=== PATIENT | female | born 1990 | race Caucasian/White ===

== ENCOUNTER 2019-09-26 09:59 | Outpatient (REF) | payer MEDICAID, SELFPAY | END 2019-09-26 10:00 | disposition home or self-care (01) | LOC: LAB 09:59 | PROVIDERS: Family Provider Family Medicine; PCP Family Medicine; Visit Provider Family Medicine | DX: R00.0 Tachycardia, unspecified (principal) | CPT/HCPCS: 36415; 82384; 83835 ==

== ENCOUNTER 2019-10-07 12:23 | Outpatient (CLI) | payer MEDICAID, SELFPAY ==
--- NOTE | 2019-10-07 12:45 | USCV_ITS ---
Dora Ruffin Age: 29 Gender: F : 1990 Exam Date: 10/07/2019 12:58 Ordering Phys: Moncho Larsen MD Technologist: Rissa Chin Exam Location: [place] Indication: Chest pain. Palpitations. BP: / HR: 92 Rhythm: Sinus Technical Quality: Adequate MEASUREMENTS (Male / Female) Normal Values 2D ECHO LV Diastolic Diameter PLAX 4.4 cm 4.2 - 5.9 / 3.9 - 5.3 cm LV Systolic Diameter PLAX 2.7 cm IVS Diastolic Thickness 1.1 cm 0.6 - 1.0 / 0.6 - 0.9 cm IVS Systolic Thickness 1.3 cm LVPW Diastolic Thickness 0.8 cm 0.6 - 1.0 / 0.6 - 0.9 cm LVPW Systolic Thickness 1.5 cm LVOT Diameter 2.0 cm LV Ejection Fraction 2D Teich 68.4 % LV Ejection Fraction MOD 2C 76.9 % LV Ejection Fraction 2C AL 76.9 % LA Diameter 2.9 cm LA Width 3.0 cm LA Height 4.2 cm RA Width 2.8 cm RA Height 3.9 cm Aorta at Sinotubular Diameter 2.3 cm M-MODE LV Diastolic Diameter MM 4.7 cm 4.2 - 5.9 / 3.9 - 5.3 cm LV Systolic Diameter MM 2.8 cm LV Ejection Fraction MM Teich 70.9 % IVS Diastolic Thickness MM 0.8 cm 0.6 - 1.0 / 0.6 - 0.9 cm IVS Systolic Thickness MM 1.3 cm LVPW Diastolic Thickness MM 0.8 cm 0.6 - 1.0 / 0.6 - 0.9 cm LVPW Systolic Thickness MM 1.6 cm Aortic Annulus Diameter 2.6 cm LA Ao Ratio MM 1.1 MV E Point Septal Separation 0.4 cm DOPPLER AV Peak Velocity 137.0 cm/s LVOT Peak Velocity 97.0 cm/s AV Area Cont Eq vti 2.7 cm squared AV Area Cont Eq pk 2.2 cm squared MV Area PHT 3.7 cm squared Mitral E to A Ratio 1.3 MV E' Velocity 13.0 cm/s Mitral E to MV E' Ratio 7.7 Mitral E to LV E' Lateral Ratio 7.1 Mitral E to LV E' Septal Ratio 8.5 TV Peak E Velocity 62.0 cm/s Right Atrial Pressure 3.0 mmHg PV Peak Velocity 94.0 cm/s RV Acceleration Time 0.1 s RV Ejection Time 0.3 s RV AcT/ET 0.5 FINDINGS Left Ventricle Normal left ventricular size and systolic function, EF 70 %. No regional wall motion abnormalities. Right Ventricle The right ventricle is normal in size and function. Right Atrium The right atrium is normal in size. Left Atrium The left atrium is normal in size. Mitral Valve Structurally normal mitral valve without significant stenosis or prolapse. There is no mitral regurgitation. Aortic Valve Structurally normal aortic valve without significant sclerosis or stenosis. There is no aortic regurgitation. Tricuspid Valve Structurally normal tricuspid valve without significant stenosis or regurgitation. Pulmonary artery systolic pressure is normal. Pulmonic Valve Structurally normal pulmonic valve without significant stenosis. There is no pulmonic regurgitation. Pericardium Normal pericardium without effusion. Aorta Normal ascending aorta dimension. CONCLUSIONS Normal left ventricular size and systolic function, EF 70 %. No regional wall motion abnormalities. Normal cardiac chamber sizes. No significant valvular lesions. No intracardiac masses No intracardiac shunts by color flow Doppler examination No similar previous studies are available for comparison Dr Olivia Dykes MD FACC (Electronically Signed) Final Date: 07 October 2019 18:22 S
== END 2019-10-07 12:24 | disposition home or self-care (01) ==
LOC: US 12:25
PROVIDERS: Family Provider Family Medicine; Visit Provider Family Medicine
DX: R07.9 Chest pain, unspecified (principal); R00.0 Tachycardia, unspecified
CPT/HCPCS: 93306

== ENCOUNTER → 2019-10-11 12:54 | Outpatient (BNVA) | payer MEDICAID, SELFPAY | PROVIDERS: Family Provider Family Medicine; Visit Provider Nurse Practitioner Family | DX: R31.29 Other microscopic hematuria (principal); N39.0 Urinary tract infection, site not specified | CPT/HCPCS: 81001 ==

== ENCOUNTER → 2019-10-27 07:46 | Outpatient (BNVA) | payer MEDICAID, SELFPAY | PROVIDERS: Family Provider Family Medicine; PCP Family Medicine; Visit Provider Specialist | DX: G43.711 Chronic migraine without aura, intractable, with status migrainosus (principal) | CPT/HCPCS: 64615; J0585 ==

== ENCOUNTER → 2020-01-05 16:44 | Outpatient (BNVA) | payer MEDICAID, SELFPAY | PROVIDERS: Family Provider Family Medicine; PCP Family Medicine; Visit Provider Nurse Practitioner | DX: K21.9 Gastro-esophageal reflux disease without esophagitis (principal); E55.9 Vitamin D deficiency, unspecified | CPT/HCPCS: 80053; 82306; 82607; 85025 ==

== ENCOUNTER → 2020-01-19 07:43 | Outpatient (BNVA) | payer MEDICAID, SELFPAY | PROVIDERS: Family Provider Family Medicine; PCP Family Medicine; Visit Provider Specialist | DX: G43.711 Chronic migraine without aura, intractable, with status migrainosus (principal) | CPT/HCPCS: 64615; J0585 ==

== ENCOUNTER → 2020-02-24 12:18 | Outpatient (BNVA) | payer MEDICAID, SELFPAY | PROVIDERS: Family Provider Family Medicine; PCP Family Medicine; Visit Provider Nurse Practitioner | DX: G47.00 Insomnia, unspecified (principal); F98.8 Other specified behavioral and emotional disorders with onset usually occurring in childhood and adolescence; G25.81 Restless legs syndrome; E66.9 Obesity, unspecified | CPT/HCPCS: 80061; 82310; 83970 ==

== ENCOUNTER → 2020-03-09 15:28 | Outpatient (BNVA) | payer MEDICAID, SELFPAY | PROVIDERS: Family Provider Family Medicine; PCP Family Medicine; Visit Provider Nurse Practitioner Family | DX: N39.0 Urinary tract infection, site not specified (principal) | CPT/HCPCS: 80053; 87077; 87086; 87186 ==

== ENCOUNTER → 2020-03-15 14:24 | Outpatient (BNVA) | payer MEDICAID, SELFPAY | PROVIDERS: Family Provider Family Medicine; PCP Family Medicine; Visit Provider Specialist | DX: M25.569 Pain in unspecified knee (principal) | CPT/HCPCS: 73560; 73565 ==

== ENCOUNTER 2020-04-06 08:07 | Outpatient (CLI) | payer MEDICAID, SELFPAY ==
[2020-04-06 08:42] LABS: Basophils % 0.1 %; Hematocrit 41.8 % (37.0-47.0); Hemoglobin 13.9 g/dL (11.5-15.3); Lymphocytes % 29.7 %; Mean Corpuscular HGB Conc 33.3 g/dL (30.0-36.0); Mean Corpuscular Hemoglobin 30.3 pg (28.0-34.0); Mean Corpuscular Volume 91.1 fL (81-99); Mean Platelet Volume 11.1 fL (7.4-10.4); Monocytes # 0.5 10^3/uL (0.2-0.9); Monocytes % 7.7 %; Neutrophils # 4.21 10^3/uL (1.8-7.7); Neutrophils % 62.4 %; Nucleated Red Blood Cells % 0 %; Platelet Count 261 10^3/cmm (130-400); Red Blood Count 4.59 10^6/uL (4.1-5.3); Red Cell Distribution Width 11.9 % (12.1-15.1); White Blood Count 6.8 10^3/uL (4.0-10.0)
[2020-04-06 09:09] LABS: Alanine Aminotransferase 16 U/L (0-33); Albumin Level 4.5 g/dL (3.5-5.2); Alkaline Phosphatase 82 IU/L (35-105); Anion Gap 12.6 (5-19); Aspartate Amino Transferase 11 U/L (0-32); Blood Urea Nitrogen 9 mg/dL (6-20); Calcium 8.7 mg/dL (8.5-10.5); Carbon Dioxide 28 mmol/L (22-29); Chloride 102 mmol/L (98-107); Globulin 3.2 g/dL (1.3-4.6); Glomerular Filtration Rate 117.4 mL/min (90-130); Glucose 76 mg/dL (65-115); Osmolality Calculated 283 mOsm/kg (285-295); Potassium 3.6 mmol/L (3.5-5.1); Sodium 139 mmol/L (136-145); Total Bilirubin 0.4 mg/dL (0.15-1.2); Total Protein 7.7 g/dL (6.6-8.7)
[2020-04-06 09:52] LABS: HIV 1 & 2 Antibody Non-Reactive (Non-Reactiv); HIV 1 & 2 Antigen Non-Reactive (Non-Reactiv)
[2020-04-06 09:54] LABS: Hepatitis A Antibody IgM Non-Reactive (Nonreactive); Hepatitis B Core AB, Total Non-Reactive (Nonreactive); Hepatitis B Surface AB 38.2 (0-8.5); Hepatitis B Surface Antigen Non-Reactive (Nonreactive); Hepatitis C Virus Antibody Non-Reactive (Nonreactive)
[2020-04-06 10:12] LABS: Erythrocyte Sedimentation Rate 10 mm/hr (0-15)
[2020-04-09 11:47] LABS: Lyme AB Screen <0.90 index
[2020-04-09 13:12] LABS: Anti-Nuclear Antibody Screen NEGATIVE (NEGATIVE)
[2020-04-10 17:02] LABS: E. Chaffeensis AB IGG <1:64; E. Chaffeensis AB IGM <1:20
[2020-04-11 16:02] LABS: RMSF IGG NOT DETECTED; RMSF IGM NOT DETECTED
== END 2020-04-06 08:08 | disposition home or self-care (01) ==
LOC: LAB 08:10
PROVIDERS: PCP Family Medicine; Visit Provider Student in an Organized Health Care Education/Training Program
DX: R50.9 Fever, unspecified (principal)
CPT/HCPCS: 36415; 80053; 85025; 85651; 86038; 86618; 86622; 86638; 86666; 86705; 86706; 86709; 86757; 86803; 87040; 87340; 87806

== ENCOUNTER → 2020-04-12 07:45 | Outpatient (BNVA) | payer MEDICAID, SELFPAY | PROVIDERS: PCP Family Medicine; Visit Provider Specialist | DX: G43.711 Chronic migraine without aura, intractable, with status migrainosus (principal); F98.8 Other specified behavioral and emotional disorders with onset usually occurring in childhood and adolescence; F32.9 Major depressive disorder, single episode, unspecified | CPT/HCPCS: 64615; 99213 ==

== ENCOUNTER 2020-05-29 16:36 | Outpatient (CLI) | payer MEDICAID, SELFPAY | END 2020-05-29 16:37 | disposition home or self-care (01) | LOC: LAB 03-22 14:04 | PROVIDERS: PCP Nurse Practitioner; Visit Provider Nurse Practitioner Women's Health | DX: N89.8 Other specified noninflammatory disorders of vagina (principal); Z12.4 Encounter for screening for malignant neoplasm of cervix | CPT/HCPCS: 87512; 87799 ==

== ENCOUNTER 2020-06-15 14:02 | Outpatient (CLI) | payer MEDICAID, SELFPAY ==
--- NOTE | 2020-06-15 14:09 | CT_ITS ---
WS: [id number] CT scan of the head, 06/15/2020 Clinical Data: fuo Comparison: MRI of the head, 03/11/2017. DLP: 992.[address] scans at [facility] use at least one of these dose optimization techniques: automat ed exposure control; mA and/or kV adjustment per patient size (includes targeted exams where dose is matched to clinical indication); or iterative reconstruction. Findings: The ventricular system is normal without shift. No recent infarct or hemorrhage is seen. There are no abnormal intracerebral masses. The cerebellum and brainstem are not remarkable. Bony windows of the skull and skull base show no fractures or erosions. The mastoid air cells, director international al auditory canals, sella turcica, intraorbital contents, and paranasal sinuses are unremarkable. CT/CT head wo con* [id number] Impression: Negative CT scan of the head
== END 2020-06-15 14:03 | disposition home or self-care (01) ==
LOC: RADWPI 14:05
PROVIDERS: PCP Nurse Practitioner; Visit Provider Student in an Organized Health Care Education/Training Program
DX: R50.9 Fever, unspecified (principal)
CPT/HCPCS: 70450; 88175

== ENCOUNTER 2020-07-09 13:39 | Outpatient (CLI) | payer MEDICAID, SELFPAY ==
[2020-07-09 14:11] LABS: Basophils % 0.2 %; Eosinophils % 0.1 %; Hematocrit 40.9 % (37.0-47.0); Hemoglobin 13.9 g/dL (11.5-15.3); Lymphocytes # 2.7 10^3/uL (0.8-4.8); Lymphocytes % 29.4 %; Mean Corpuscular Hemoglobin 30.8 pg (28.0-34.0); Mean Corpuscular Volume 90.5 fL (81-99); Mean Platelet Volume 11.3 fL (7.4-10.4); Monocytes # 0.7 10^3/uL (0.2-0.9); Monocytes % 7.7 %; Neutrophils # 5.65 10^3/uL (1.8-7.7); Neutrophils % 62.4 %; Nucleated Red Blood Cells % 0 %; Platelet Count 281 10^3/cmm (130-400); Red Blood Count 4.52 10^6/uL (4.1-5.3); Red Cell Distribution Width 12.2 % (12.1-15.1); White Blood Count 9.1 10^3/uL (4.0-10.0)
[2020-07-09 14:27] LABS: Estmated Average Glucose 85; Hemoglobin A1C 4.6 % (4.0-6.0)
[2020-07-09 15:04] LABS: Alanine Aminotransferase 27 U/L (0-33); Albumin Level 4.4 g/dL (3.5-5.2); Alkaline Phosphatase 95 IU/L (35-105); Anion Gap 14.5 (5-19); Aspartate Amino Transferase 14 U/L (0-32); Blood Urea Nitrogen 9 mg/dL (6-20); Carbon Dioxide 24 mmol/L (22-29); Chloride 107 mmol/L (98-107); Chol HDL Ratio 2.85 mg/dL (0.0-4.40); Cholesterol 117 mg/dL (0-200); Globulin 2.7 g/dL (1.3-4.6); Glomerular Filtration Rate 73.5 mL/min (90-130); Glucose 83 mg/dL (65-115); HDL Cholesterol 41 mg/dL (60-100); Iron 68 ug/dL (37-145); LDL Cholesterol Calculated 41 mg/dL (50-129); Osmolality Calculated 292 mOsm/kg (285-295); Potassium 3.5 mmol/L (3.5-5.1); Sodium 142 mmol/L (136-145); Thyroid Stimulating Hormone 0.72 uIU/mL (0.27-4.20); Total Bilirubin 0.3 mg/dL (0.15-1.2); Total Protein 7.1 g/dL (6.6-8.7); Triglycerides 173 mg/dL (0-150); Vitamin B12 383 pg/mL (232-1245)
[2020-07-10 10:25] LABS: Parathyroid Hormone 27.9 pg/mL (15-65)
== END 2020-07-09 13:40 | disposition home or self-care (01) ==
PROVIDERS: PCP Nurse Practitioner; Visit Provider Surgery
DX: E88.81 Metabolic syndrome and other insulin resistance (principal)
CPT/HCPCS: 80053; 80061; 82310; 82607; 82746; 83036; 83540; 83735; 83970; 84100; 84443; 85025

== ENCOUNTER → 2020-07-12 07:56 | Outpatient (BNVA) | payer MEDICAID, SELFPAY | PROVIDERS: PCP Nurse Practitioner; Visit Provider Specialist | DX: G43.711 Chronic migraine without aura, intractable, with status migrainosus (principal); G47.00 Insomnia, unspecified; F41.8 Other specified anxiety disorders | CPT/HCPCS: 64615; 99213; J0585 ==

== ENCOUNTER 2020-07-20 08:06 | Outpatient (CLI) | payer MEDICAID, SELFPAY ==
--- NOTE | 2020-07-20 08:12 | CT_ITS ---
WS: [id number] CT CHEST, ABDOMEN AND PELVIS WITH CONTRAST HISTORY: Fever of unknown origin. Evaluate for possible mass or abscess. TECHNIQUE: Contiguous 5 mm axial imaging performed through the chest, abdomen and pelvis with IV cont rast, oral contrast has been provided. Patient vomited the oral contrast therefore there is very limi isaac oral contrast present. Coronal and sagittal reformats chest. Coronal and sagittal reformats throu gh the abdomen and pelvis. All CT scans at [facility] use at least one of these dose opti mization techniques: automated exposure control; mA and/or kV adjustment per patient size (includes t argeted exams where dose is matched to clinical indication); or iterative reconstruction. CONTRAST: Omnipaque 300; 95 mL IV. DLP: 2096.83 mGy.cm COMPARISON: 12/02/[address]: Lungs are clear. No pneumonia or nodules. No mediastinal or hilar adenopathy. Heart size is normal. No significant hernia. Negative chest wall. Abdomen CT: Mild enlargement of the liver with hepatic steatosis. Spleen is normal size. Normal pancr eas and adrenal glands. Normal kidneys and aorta. Surgical changes at the stomach from prior bypass. No ascites or adenopathy. The appendix is normal. There is mild diffuse fecal retention. No mucosal thickening. No evidence for diverticulitis. Pelvic CT: Uterus is midline and anteverted. There is an IUD which appears appropriate position by CT . Bilateral ovarian follicles. No solid mass. No free fluid or adenopathy. No bone destruction. CT/CT chest abd pel w con* IMPRESSION: 1. Negative CT chest, abdomen and pelvis for inflammatory process or infection . 2. Mild hepatic steatosis. 3. Normal appendix. 4. No renal obstruction. 5. No pneumonia.
[2020-07-20] MEDS: iohexol 300 mg/mL 50 mL Btl PO (08:29)
[2020-07-20] MEDS: iohexol 300 mg/mL 100 mL Btl IV (10:05)
[2020-07-21] MEDS: iohexol 300 mg/mL 100 mL Btl IV (12:21)
== END 2020-07-20 08:07 | disposition home or self-care (01) ==
LOC: RAD 08:07
PROVIDERS: PCP Nurse Practitioner; Visit Provider Student in an Organized Health Care Education/Training Program
DX: R50.9 Fever, unspecified (principal); K76.0 Fatty (change of) liver, not elsewhere classified
CPT/HCPCS: 71260; 74177

== ENCOUNTER 2020-07-23 20:00 | Outpatient (CLI) | payer MEDICAID, SELFPAY | END 2020-07-23 20:01 | disposition home or self-care (01) | LOC: SLEEP 07-24 10:00 | PROVIDERS: PCP Nurse Practitioner; Visit Provider Nurse Practitioner | DX: G47.10 Hypersomnia, unspecified (principal) | CPT/HCPCS: 95810 ==

== ENCOUNTER → 2020-07-24 08:21 | Outpatient (BNVA) | payer MEDICAID, SELFPAY | PROVIDERS: PCP Nurse Practitioner; Visit Provider Orthopaedic Surgery | DX: R52 Pain, unspecified (principal); M47.816 Spondylosis without myelopathy or radiculopathy, lumbar region | CPT/HCPCS: 72114; 73502 ==

== ENCOUNTER 2020-07-27 08:02 | Outpatient (CLI) | payer MEDICAID, SELFPAY ==
--- NOTE | 2020-07-27 08:00 | MM_ITS ---
WS: [id number] Bilateral screening digital mammogram, 07/27/2020 Clinical Data: screening for breast cancer Comparison: None. Findings: The breast parenchymal pattern shows fibroglandular tissue No spiculated masses or clustered calcific ations are seen. There are no secondary signs of carcinoma. MM/[place] [id number] Impression: 1. Negative bilateral mammogram unchanged. 2. Recommend annual screening mammograms. BIRADS: 1-Negative FOLLOW UP: 1 Year Follow-up The CAD raspberry checker was used.
== END 2020-07-27 08:03 | disposition home or self-care (01) ==
PROVIDERS: PCP Nurse Practitioner; Visit Provider Nurse Practitioner Women's Health
DX: Z12.31 Encounter for screening mammogram for malignant neoplasm of breast (principal)
CPT/HCPCS: 77067

== ENCOUNTER → 2020-10-04 07:56 | Outpatient (BNVA) | payer MEDICAID, SELFPAY | PROVIDERS: PCP Nurse Practitioner; Visit Provider Specialist | DX: R50.9 Fever, unspecified (principal); N39.0 Urinary tract infection, site not specified; G47.00 Insomnia, unspecified; M25.569 Pain in unspecified knee; Z11.59 Encounter for screening for other viral diseases; G43.711 Chronic migraine without aura, intractable, with status migrainosus; F41.8 Other specified anxiety disorders | CPT/HCPCS: 36415; 64615; 80053; 82533; 82550; 82728; 83540; 85025; 85651; 86140; 86160; 86162; 86235; 86255; 86376; 86704; 86803; 87340; 99204; J0585 ==

== ENCOUNTER → 2020-10-09 12:58 | Outpatient (BNVA) | payer MEDICAID, SELFPAY | PROVIDERS: PCP Nurse Practitioner; Visit Provider Nurse Practitioner Family | DX: N39.0 Urinary tract infection, site not specified (principal) | CPT/HCPCS: 81003 ==

== ENCOUNTER 2020-10-26 09:14 | Outpatient (CLI) | payer MEDICAID, SELFPAY ==
--- NOTE | 2020-10-26 09:24 | XR_ITS ---
WS: [id number] XR hand LT 2V 61543 REASON FOR EXAM: M25.569 - Pain in unspecified knee FINDINGS: The joint spaces of the left hand are intact. No bony erosions or other focal bony abnormality identified. No soft tissue calcification or other soft tissue abnormality identified. XR/XR hand LT 2V 40824 IMPRESSION: No significant abnormality.
--- NOTE | 2020-10-26 09:24 | XR_ITS ---
WS: [id number] XR knee RT 1-2V 10291 REASON FOR EXAM: M25.569 - Pain in unspecified knee FINDINGS: On the AP standing view the course on the plane of the right knee joint is 6 mm below the horizontal plane of the left knee joint. The medial, lateral, and patellofemoral joint spaces are intact. No focal bony abnormality. No soft tissue abnormality. XR/XR knee RT 1-2V 37649 IMPRESSION: Weightbearing alignment of the knee joints as above. No focal abnormality of the right knee joint.
--- NOTE | 2020-10-26 09:24 | XR_ITS ---
WS: [id number] XR sacroiliac jts m 3V 19469 REASON FOR EXAM: L40.9 - Psoriasis, unspecified FINDINGS: Sacroiliac joint margins are smooth without erosion. No widening or narrowing. Normal adjacent bone. XR/XR sacroiliac jts m 3V 31606 IMPRESSION: No findings of sacroiliitis.
--- NOTE | 2020-10-26 09:24 | XR_ITS ---
WS: [id number] XR knee LT 1-2V 79548 REASON FOR EXAM: M25.569 - Pain in unspecified knee FINDINGS: On the AP standing view the horizontal plane of the left knee is 6 mm above the horizontal plane of t he right knee. Knee joint. The medial, lateral, and patellofemoral joint spaces are intact. No focal bony abnormality. No soft tissue abnormality. XR/XR knee LT 1-2V 51814 IMPRESSION: Knee joint alignment on standing as above. No significant focal abnormality of the left knee.
--- NOTE | 2020-10-26 09:24 | XR_ITS ---
WS: [id number] XR hand RT 2V 83131 REASON FOR EXAM: M25.569 - Pain in unspecified knee FINDINGS: The joint spaces of the right hand are intact. No erosions or other focal bony abnormality. No soft tissue calcification or other soft tissue abnormality. XR/XR hand RT 2V 96454 IMPRESSION: No significant abnormality.
== END 2020-10-26 09:15 | disposition home or self-care (01) ==
PROVIDERS: PCP Nurse Practitioner; Visit Provider Internal Medicine
DX: M25.569 Pain in unspecified knee (principal); L40.9 Psoriasis, unspecified
CPT/HCPCS: 72202; 73120; 73560

== ENCOUNTER 2020-11-22 15:12 | Outpatient (CLI) | payer MEDICAID, SELFPAY ==
--- NOTE | 2020-11-22 15:41 | XR_ITS ---
WS: [id number] Chest 2 views, 11/22/2020 Clinical Data: R05 - Cough Comparison: PA and lateral chest, 10/07/2008. Findings: No nodules, masses or effusions are seen. The heart is normal. The pulmonary vascularity is not increased. No pneumonia or pneumothorax is seen. XR/XR chest 2V* [id number] Impression: Negative chest.
== END 2020-11-22 15:13 | disposition home or self-care (01) ==
PROVIDERS: PCP Nurse Practitioner; Visit Provider Nurse Practitioner
DX: R05 Cough (principal)
CPT/HCPCS: 71046

== ENCOUNTER 2020-11-22 15:26 | Outpatient (CLI) | payer MEDICAID, SELFPAY ==
[2020-11-22 16:17] LABS: Basophils % 0.4 %; Eosinophils % 0.5 %; Hematocrit 40.6 % (37.0-47.0); Hemoglobin 13.4 g/dL (11.5-15.3); Lymphocytes # 1.6 10^3/uL (0.8-4.8); Lymphocytes % 20.3 %; Mean Corpuscular Hemoglobin 29.8 pg (28.0-34.0); Mean Corpuscular Volume 90.2 fL (81-99); Mean Platelet Volume 11.4 fL (7.4-10.4); Monocytes # 0.7 10^3/uL (0.2-0.9); Neutrophils # 5.57 10^3/uL (1.8-7.7); Neutrophils % 69.5 %; Nucleated Red Blood Cells % 0 %; Platelet Count 263 10^3/cmm (130-400); Red Cell Distribution Width 12.2 % (12.1-15.1)
[2020-11-23 11:52] LABS: Quest SARS-CoV-2 RNA NOT DETECTED (NOT DETECTED)
== END 2020-11-22 15:27 | disposition home or self-care (01) ==
PROVIDERS: PCP Nurse Practitioner; Visit Provider Nurse Practitioner
DX: R05 Cough (principal)
CPT/HCPCS: 36415; 85025; 87635

== ENCOUNTER 2020-12-10 07:38 | Outpatient (CLI) | payer MEDICAID, SELFPAY ==
--- NOTE | 2020-12-10 08:00 | MR_ITS ---
WS: [id number] MRI LUMBAR SPINE NONCONTRAST TECHNIQUE: Sagittal T1, T2 and STIR imaging. Axial T1 and T2 imaging. CLINICAL INFORMATION: M54.5 - Low back pain COMPARISON: None. FINDINGS: Normal lumbar alignment. No acute compression. Mild annular bulge L4-5. No high-grade central canal s tenosis. L1-L2: Normal. L2-L3: Normal. L3-L4: No significant disc bulging. Spinal canal and foramen are patent. Mild facet arthropathy. L4-L5: Mild annular bulging with slight effacement of ventral thecal sac. Mild right and no significa nt left foraminal narrowing. Mild facet arthropathy. L5-S1: No significant disc bulging. Spinal canal and foramen are patent. Small central disc protrusion T7-T8 and T9-10 with mild central canal stenosis and slight contact of the thoracic cord. This can be followed up with thoracic spine MRI. Visualized pelvic bony structures: Normal. Paravertebral soft tissues: Normal. MR/MR lumbar spine wo con* [id number] IMPRESSION: 1. Normal lumbar alignment. No acute compression. No high-grade central canal stenosis. 2. Mild annular bulging L4-5 with slight effacement of ventral thecal sac and slight narrowing of the left greater than right subarticular recess. Slight enc roachment traversing L5 nerve roots. 3. Mild right L4-5 foraminal narrowing. 4. Small disc protrusions mid thoracic spine seen on the mortgage processor imaging worse a t T7-T8 and T9-T10 with mild central canal stenosis.
== END 2020-12-10 07:39 | disposition home or self-care (01) ==
LOC: RADSHAW 07:42
PROVIDERS: PCP Nurse Practitioner; Visit Provider Orthopaedic Surgery
DX: M51.26 Other intervertebral disc displacement, lumbar region (principal); M48.04 Spinal stenosis, thoracic region
CPT/HCPCS: 72148

== ENCOUNTER 2020-12-24 07:48 | Outpatient (CLI) | payer MEDICAID, SELFPAY ==
[2020-12-24 08:59] LABS: Complement C3 128 mg/dL (90-180)
[2020-12-25 12:12] LABS: Angiotensin Converting Enzyme 22 U/L (9-67)
[2020-12-28 10:59] LABS: ANCA Interp Negative (Negative)
== END 2020-12-24 07:49 | disposition home or self-care (01) ==
PROVIDERS: PCP Nurse Practitioner; Visit Provider Internal Medicine
DX: R50.9 Fever, unspecified (principal); R76.8 Other specified abnormal immunological findings in serum; Z98.84 Bariatric surgery status
CPT/HCPCS: 36415; 82164; 83516; 86160

== ENCOUNTER → 2020-12-27 07:59 | Outpatient (BNVA) | payer MEDICAID, SELFPAY | PROVIDERS: PCP Nurse Practitioner; Visit Provider Specialist | DX: G43.709 Chronic migraine without aura, not intractable, without status migrainosus (principal) | CPT/HCPCS: 64615; J0585 ==

== ENCOUNTER 2021-01-28 10:20 | Outpatient (CLI) | payer MEDICAID, SELFPAY ==
--- NOTE | 2021-01-28 10:30 | FL_ITS ---
WS: [id number] UPPER GI WITH AIR TECHNICAL: FLUOROSCOPY TIME: 3.6 minutes CLINICAL INFORMATION: Z98.84 - Bariatric surgery status COMPARISON: Upper GI June 16, 2019, , and . FINDINGS: Prior postoperative changes gastric sleeve procedure. Again seen is the previously describe d stricture in the mid body of the gastric sleeve which is unchanged. Evidence of mild gastritis with thickening of the gastric rugae. Active reflux to the level of the upper thoracic esophagus seen on the supine imaging. Only small eso phageal hiatal hernia. Swallowing: Normal. Esophagus: Mild esophageal dysmotility with slightly delayed emptying on the upright view. Evidence o f reflux esophagitis. Gastroesophageal reflux: Active reflux to the mid and upper esophagus on the supine imaging. Stomach: Postoperative gastric sleeve. Unchanged stricture in the mid body of the stomach which is pe rsistent on all the imaging. Evidence of gastritis Duodenum: Normal duodenal C-loop. Other findings: None. FL/FL upper GI w air* [id number] IMPRESSION: 1. Postoperative gastric sleeve with unchanged moderate stricture in the mid b dex of the stomach. This is unchanged from the prior studies. 2. Active reflux visualized to the upper thoracic esophagus in the supine imag ing. 3. No significant hiatal hernia. 4. Normal duodenal C-loop. 5. Evidence of gastritis and reflux esophagitis.
== END 2021-01-28 10:21 | disposition home or self-care (01) ==
PROVIDERS: PCP Nurse Practitioner; Visit Provider Surgery
DX: Z98.84 Bariatric surgery status (principal); K21.9 Gastro-esophageal reflux disease without esophagitis
CPT/HCPCS: 74246

== ENCOUNTER → 2021-03-21 08:09 | Outpatient (BNVA) | payer MEDICAID, SELFPAY | PROVIDERS: PCP Nurse Practitioner; Visit Provider Specialist | DX: G43.711 Chronic migraine without aura, intractable, with status migrainosus (principal) | CPT/HCPCS: 64615; J0585 ==

== ENCOUNTER 2021-04-05 10:06 | Outpatient (CLI) | payer MEDICAID, SELFPAY ==
[2021-04-05 10:57] LABS: Basophils % 0.4 %; Eosinophils % 0.2 %; Hematocrit 39.4 % (37.0-47.0); Lymphocytes # 1.6 10^3/uL (0.8-4.8); Mean Corpuscular Hemoglobin 29.4 pg (28.0-34.0); Mean Corpuscular Volume 89.1 fl (81-99); Mean Platelet Volume 11.6 fL (7.4-10.4); Monocytes # 0.6 10^3/uL (0.2-0.9); Neutrophils # 8.36 10^3/uL (1.8-7.7); Neutrophils % 78.1 %; Nucleated Red Blood Cells % 0 %; Platelet Count 248 10^3/cmm (130-400); Red Blood Count 4.42 10^6/uL (4.1-5.3); Red Cell Distribution Width 12.4 % (12.1-15.1); White Blood Count 10.7 10^3/uL (4.0-10.0)
[2021-04-05 11:14] LABS: Calcium 8.6 mg/dL (8.5-10.5)
[2021-04-05 11:19] LABS: 25 Hydroxy Vitamin D 30 ng/mL (30-100); Alanine Aminotransferase 26 U/L (0-33); Albumin Level 4.1 g/dL (3.5-5.2); Alkaline Phosphatase 78 IU/L (35-105); Anion Gap 11.9 (5-19); Aspartate Amino Transferase 16 U/L (0-32); Blood Urea Nitrogen 10 mg/dL (6-20); Calcium 8.5 mg/dL (8.5-10.5); Carbon Dioxide 28 mmol/L (22-29); Chloride 103 mmol/L (98-107); Chol HDL Ratio 2.73 mg/dL (0.0-4.40); Cholesterol 109 mg/dL (0-200); Ferritin 24 ng/mL (15-150); Glomerular Filtration Rate 83.7 mL/min (90-130); Glucose 82 mg/dL (65-115); HDL Cholesterol 40 mg/dL (60-100); Iron 43 ug/dL (37-145); LDL Cholesterol Calculated 61 mg/dL (50-129); LDL HDL Ratio 1.53 RATIO (0.00-3.22); Osmolality Calculated 286 mOsm/kg (285-295); Percent Saturation 16.8 % (20-50); Potassium 3.9 mmol/L (3.5-5.1); Sodium 139 mmol/L (136-145); Thyroid Stimulating Hormone 0.75 uIU/mL (0.27-4.20); Total Bilirubin 0.5 mg/dL (0.15-1.2); Total Iron Binding Capacity 255 mcg/dl; Total Protein 7.1 g/dL (6.6-8.7); Triglycerides 40 mg/dL (0-150); Unsaturated Iron Binding 212 ug/dL (112-347); Vitamin B12 395 pg/mL (232-1245)
[2021-04-05 11:22] LABS: Parathyroid Hormone 97.2 pg/mL (15-65)
[2021-04-05 11:36] LABS: Estmated Average Glucose 88; Hemoglobin A1C 4.7 % (4.0-6.0)
[2021-04-05 13:16] LABS: H. Pylori IgG Antibody Negative (Negative)
== END 2021-04-05 10:07 | disposition home or self-care (01) ==
PROVIDERS: PCP Nurse Practitioner; Visit Provider Nurse Practitioner Adult Health
DX: K21.9 Gastro-esophageal reflux disease without esophagitis (principal)
CPT/HCPCS: 80053; 80061; 82306; 82310; 82607; 82728; 83036; 83540; 83550; 83970; 84443; 85025; 86677

== ENCOUNTER → 2021-04-12 14:05 | Outpatient (BNVA) | payer MEDICAID, SELFPAY | PROVIDERS: PCP Nurse Practitioner; Visit Provider Surgery | DX: Z20.822 Contact with and (suspected) exposure to COVID-19 (principal); K21.9 Gastro-esophageal reflux disease without esophagitis | CPT/HCPCS: 87635 ==

== ENCOUNTER 2021-04-17 09:01 | Day surgery (SDC) | payer MEDICAID, SELFPAY ==
[2021-04-12 13:19] VITALS: BMI 35.2
--- NOTE | 2021-04-17 09:16 | P.ANESASSM_ITS ---
Pre-Anesthetic Assessment Pre-Anesthetic Assessment: Height/Weight: Height 1.68 m Weight 98.883 kg Preop Diagnosis: GERD Proposed Procedure: Operation Date: 04/17/21 10:30 Proposed Procedures p EGD 13160 K21.9(Not Applicable) - Cuba Rosado MD Familial anesthetic complications: trouble waking up afterwards (sleepy) Last intake: > 8 hrs Social: Social History: No alcohol and No tobacco Exam: Pre-Anes Outpt Exam: alert, oriented x 3, clear to auscultation bilaterally and regular rate & rhythm Airway: MP: 2 Dentition: Full CV/HEM: Comments: tachycardia GI: GI: GERD Comments: gastric sleeve Metabolic: Comments: hyperpth Anesthetic Plan: ASA status: 3 Anesthesia: MAC Risk of > 500 ml blood loss (7ml/kg in children): No PFSH Anesthesia PFSH: Medical History Anxiety with depression Symptoms since a teenager and is managed on medication by her primary care provider. She does not have a therapist or a psychiatrist Migraine without aura Since her teenage years and is managed with medication and Botox by Dr. Dunn No pertinent past medical history Denies diabetes, asthma, hypertension, seizures, DVT/PE PCP: JEANNINE Rodriguez Sinus tachycardia Diagnosed in 2019 and is managed with propranolol and follows with cardiology---Dr. Contreras/Adrián and PMD Surgical History H/O breast biopsy (~2010) left- benign H/O release of tendon (~09/2017) left wrist for de Quervain's disease History of bilateral carpal tunnel release Rt:2017 Lt:2018 History of dilation and curettage 08/19/2012---done by Dr. Mahan at [facility] [place] for heavy bleeding. ----Pathology showed benign endometrial and endocervical curettings History of placement of ear tubes X4 --between the ages of 3 and 10 History of tonsillectomy and adenoidectomy As a child Personal history of prior ablation treatment (~08/2012) Vulvar CO2 laser ablation for vaginal and genital condyloma performed by Dr. Garcia/Kalli S/P laparoscopic sleeve gastrectomy (~11/2018) Performed by Dr. Rosado at [facility] [place]. Family History Grandmother Hypertension Paternal Diabetes Paternal Heart disease Paternal Stroke Paternal Mother Diabetes Breast cancer dx at age 44 Heart disease L ventricular hypertrophy Thyroid disease Grandfather Diabetes Maternal Colon cancer Paternal unknown age of dx Sister Hypertension Denies family history of Ovarian cancer Hypercholesteremia Bleeding disorder Uterine cancer Social History Alcohol intake: never Adopted: No Lives independently: Yes Marital status: Data Anesthesia Cardiac Studies: Cardiac Event Monitor 07/20/20
[2021-04-17 09:56] LABS: OR HCG Qualitative Urine Negative (Negative)
[2021-04-17 09:58] VITALS: BP 131/91; PULSE 73; RESP 18; TEMP 37.2; O2SAT 99
[2021-04-17] MEDS: sodium chloride 0.9% 1,000 ML 30 ML IV (10:03)
--- NOTE | 2021-04-17 10:08 | ECG_ITS ---
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 Measurements Intervals [place] Rate: 74 P: 25 [place]: 130 QRS: 37 QRSD: 86 T: 17 QT: 361 QTc: 401 Interpretive Statements SINUS RHYTHM Compared to ECG 11/30/2018 15:25:44 Sinus tachycardia no longer present Electronically Signed On 04-18-2021 10:39:08 CDT by Daisy Contreras M.D. [id number]
--- NOTE | 2021-04-17 10:43 | W.PM.OPSUD ---
Surgery/Procedure H&P Update DATE OF PROCEDURE: April 17, 2021 DATE H&P PERFORMED: 04/10/21 H&P UPDATE INFORMATION: I have reviewed H&P completed within last 30 days, I have examined patient prior to procedure and No changes to prior documentation PREOP DIAGNOSIS: Nausea and vomiting PRIMARY INDICATION FOR PROCEDURE: The same PLANNED PROCEDURE: Operation Date: 04/17/21 10:30 Proposed Procedures p EGD 89661 K21.9(Not Applicable) - Cuba Rosado MD
[2021-04-17 11:08] VITALS: BP 129/86; PULSE 76; RESP 14; TEMP 36.4; O2SAT 99
[2021-04-17 11:20] VITALS: BP 111/73; PULSE 77; RESP 18; TEMP 36.7; O2SAT 98
--- NOTE | 2021-04-17 13:57 | ANE.PACU2 ---
Inpatient post-anesthesia follow up: Airway intact: Yes Vital signs: Temperature 98.1 F Pulse Rate 77 Respiratory Rate 18 Blood Pressure 111/73 Pulse Oximetry 98 Oxygen Delivery Me thod Room Air Oxygen Flow Rate 4 Fraction of Inspir ed Oxygen Hydration adequate: Yes Nausea and vomiting: No Pain level: 1 Mental status: Baseline
== END 2021-04-17 11:47 | disposition home or self-care (01) ==
PROVIDERS: Anesthesiology; PCP Nurse Practitioner; Visit Provider Surgery
PROC: 0DJ08ZZ Inspection of Upper Intestinal Tract, Via Natural or Artificial Opening Endoscopic (ICD-10-PCS; CPT 43235; principal; 2021-04-17 10:30)
DX: R11.2 Nausea with vomiting, unspecified (principal); K21.00 Gastro-esophageal reflux disease with esophagitis, without bleeding; Z98.84 Bariatric surgery status
CPT/HCPCS: 43239; 81025; 84703; 88305; 93005; 96360; 96361; J2704; J7030

== ENCOUNTER → 2021-05-23 08:47 | Outpatient (BNVA) | payer BC, MEDICAID, SELFPAY | PROVIDERS: PCP Nurse Practitioner; Referring Provider Orthopaedic Surgery; Visit Provider Anesthesiology Pain Medicine | DX: M47.816 Spondylosis without myelopathy or radiculopathy, lumbar region (principal); M51.16 Intervertebral disc disorders with radiculopathy, lumbar region; M51.9 Unspecified thoracic, thoracolumbar and lumbosacral intervertebral disc disorder; G43.711 Chronic migraine without aura, intractable, with status migrainosus; F41.9 Anxiety disorder, unspecified | CPT/HCPCS: 99205 ==

== ENCOUNTER → 2021-06-13 08:04 | Outpatient (BNVA) | payer BC, MEDICAID, SELFPAY | PROVIDERS: PCP Nurse Practitioner; Visit Provider Specialist | DX: G43.709 Chronic migraine without aura, not intractable, without status migrainosus (principal) | CPT/HCPCS: 64615; J0585 ==

== ENCOUNTER → 2021-06-18 09:22 | Outpatient (BNVA) | payer BC, MEDICAID, SELFPAY | PROVIDERS: PCP Nurse Practitioner; Visit Provider Anesthesiology Pain Medicine | DX: M47.816 Spondylosis without myelopathy or radiculopathy, lumbar region (principal); M51.16 Intervertebral disc disorders with radiculopathy, lumbar region; M51.9 Unspecified thoracic, thoracolumbar and lumbosacral intervertebral disc disorder; G62.9 Polyneuropathy, unspecified | CPT/HCPCS: 99214 ==

== ENCOUNTER → 2021-07-09 12:37 | Outpatient (BNVA) | payer BC, MEDICAID, SELFPAY | PROVIDERS: PCP Nurse Practitioner; Visit Provider Anesthesiology Pain Medicine | DX: M47.816 Spondylosis without myelopathy or radiculopathy, lumbar region (principal); M54.16 Radiculopathy, lumbar region | CPT/HCPCS: 64493; 64494; 64495; J3490 ==

== ENCOUNTER → 2021-07-15 11:40 | Outpatient (BNVA) | payer BC, MEDICAID, SELFPAY | PROVIDERS: PCP Nurse Practitioner; Visit Provider Family Medicine | DX: Z20.822 Contact with and (suspected) exposure to COVID-19 (principal); Z20.828 Contact with and (suspected) exposure to other viral communicable diseases | CPT/HCPCS: 87426; 87635 ==

== ENCOUNTER → 2021-07-23 08:57 | Outpatient (BNVA) | payer BC, MEDICAID, SELFPAY | PROVIDERS: PCP Nurse Practitioner; Visit Provider Anesthesiology Pain Medicine | DX: M47.816 Spondylosis without myelopathy or radiculopathy, lumbar region (principal); M51.16 Intervertebral disc disorders with radiculopathy, lumbar region; M51.9 Unspecified thoracic, thoracolumbar and lumbosacral intervertebral disc disorder; G62.9 Polyneuropathy, unspecified | CPT/HCPCS: 99214 ==

== ENCOUNTER → 2021-09-05 07:54 | Outpatient (BNVA) | payer BC, MEDICAID, SELFPAY | PROVIDERS: PCP Nurse Practitioner; Visit Provider Specialist | DX: G43.711 Chronic migraine without aura, intractable, with status migrainosus (principal) | CPT/HCPCS: 64615; J0585 ==

== ENCOUNTER → 2021-09-25 15:45 | Outpatient (BNVA) | payer BC, MEDICAID, SELFPAY | PROVIDERS: PCP Nurse Practitioner; Visit Provider Family Medicine | DX: Z20.828 Contact with and (suspected) exposure to other viral communicable diseases (principal) | CPT/HCPCS: 87635 ==

== ENCOUNTER → 2021-11-26 09:02 | Outpatient (BNVA) | payer BC, MEDICAID, SELFPAY | PROVIDERS: PCP Nurse Practitioner; Visit Provider Nurse Practitioner Women's Health | DX: N93.0 Postcoital and contact bleeding (principal) | CPT/HCPCS: 87070; 87205; 87491; 87591; 87661 ==

== ENCOUNTER → 2021-12-05 08:09 | Outpatient (BNVA) | payer BC, MEDICAID, SELFPAY | PROVIDERS: PCP Nurse Practitioner; Visit Provider Specialist | DX: G43.711 Chronic migraine without aura, intractable, with status migrainosus (principal) | CPT/HCPCS: 64615; J0585 ==

== ENCOUNTER 2022-02-18 10:03 | Outpatient (CLI) | payer BC, MEDICAID, SELFPAY ==
[2022-02-18 10:26] LABS: Basophils % 0.3 %; Eosinophils # 0.1 10^3/uL (0.0-0.8); Eosinophils % 0.7 %; Hemoglobin 12.3 g/dL (11.5-15.3); Lymphocytes # 2.3 10^3/uL (0.8-4.8); Lymphocytes % 29.9 %; Mean Corpuscular HGB Conc 33.2 g/dL (30.0-36.0); Mean Corpuscular Hemoglobin 27.8 pg (28.0-34.0); Mean Corpuscular Volume 83.5 fl (81-99); Mean Platelet Volume 12.4 fL (7.4-10.4); Monocytes # 0.6 10^3/uL (0.2-0.9); Monocytes % 8.2 %; Neutrophils # 4.67 10^3/uL (1.8-7.7); Neutrophils % 60.8 %; Nucleated Red Blood Cells % 0 %; Platelet Count 248 10^3/cmm (130-400); Red Blood Count 4.43 10^6/uL (4.1-5.3); Red Cell Distribution Width 12.4 % (12.1-15.1); White Blood Count 7.7 10^3/uL (4.0-10.0)
== END 2022-02-18 10:04 | disposition home or self-care (01) ==
LOC: LAB 10:06
PROVIDERS: PCP Nurse Practitioner; Visit Provider Surgery
DX: Z98.84 Bariatric surgery status (principal)
CPT/HCPCS: 85025

== ENCOUNTER → 2022-02-27 07:43 | Outpatient (BNVA) | payer BC, MEDICAID, SELFPAY | PROVIDERS: PCP Nurse Practitioner; Visit Provider Specialist | DX: G43.711 Chronic migraine without aura, intractable, with status migrainosus (principal); M51.16 Intervertebral disc disorders with radiculopathy, lumbar region; F41.8 Other specified anxiety disorders; G25.81 Restless legs syndrome | CPT/HCPCS: 64615; 99213; J0585 ==

== ENCOUNTER 2022-04-21 13:34 | Outpatient (CLI) | payer BC, MEDICAID, SELFPAY ==
[2022-04-21 15:29] LABS: 25 Hydroxy Vitamin D 42 ng/mL (30-100); Alanine Aminotransferase 11 U/L (0-33); Albumin Level 4.2 g/dL (3.5-5.2); Alkaline Phosphatase 147 U/L (35-105); Anion Gap 11.3 (5-19); Aspartate Amino Transferase 12 U/L (0-32); Blood Urea Nitrogen 10 mg/dL (6-20); Calcium 8.8 mg/dL (8.5-10.5); Carbon Dioxide 26 mmol/L (22-29); Chloride 104 mmol/L (98-107); Globulin 2.9 g/dL (1.3-4.6); Glomerular Filtration Rate 115.9 mL/min (90-130); Glucose 133 mg/dL (65-115); Osmolality Calculated 287 mOsm/kg (285-295); Potassium 3.3 mmol/L (3.5-5.1); Sodium 138 mmol/L (136-145); Thyroid Stimulating Hormone 0.53 uIU/mL (0.27-4.20); Total Bilirubin 0.3 mg/dL (0.15-1.2); Total Protein 7.1 g/dL (6.6-8.7); Vitamin B12 417 pg/mL (232-1245)
== END 2022-04-21 13:35 | disposition home or self-care (01) ==
PROVIDERS: PCP Nurse Practitioner; Visit Provider Nurse Practitioner
DX: R41.3 Other amnesia (principal)
CPT/HCPCS: 80053; 82306; 82607; 84443

== ENCOUNTER 2022-06-06 07:00 | Outpatient (CLI) | payer BC, MEDICAID, SELFPAY ==
--- NOTE | 2022-06-06 07:15 | MR_ITS ---
WS: [id number] MRI HEAD WITHOUT CONTRAST TECHNIQUE: Sagittal T1, T2 axial, T2 axial FLAIR, axial and coronal T1 images, axial susceptibility w eighted imaging, axial diffusion weighted images, and coronal T2 images were obtained. CLINICAL INFORMATION: G43.711 - Chronic migraine without aura, intractable, wit... COMPARISON: CT 06/15/2020 and 03/11/2017 FINDINGS: No evidence of restricted diffusion to suggest acute ischemia. Ventricular system and basal cisterns are patent. Normal garcia-white differentiation. Single tiny focus of T2 signal abnormality in the LEFT posterior frontal subcortical white matter of doubtful clinical significance but can be seen with mi graine headaches in a patient this age. This is new since 2017. This is best visualized on the FLAIR imaging. No other suspicious intracranial signal abnormality. Normal posterior fossa. Normal vascular flow voids at the skull base. No extra-axial fluid collection s. No evidence of mass or mass effect. Mild mucosal thickening in the paranasal sinuses. Mastoid air cells are well aerated. Normal posterior nasopharynx. Normal parapharyngeal fat. Normal optic chiasm and pituitary infundibulum. Temporal lobes and hippocampal formations are normal in appearance. Normal cavernous sinuses and Meckel's cave. No hemosiderin on susceptibly weighted mo ges. MR/MR head wo con* [id number] IMPRESSION: 1. No evidence of restricted diffusion to suggest acute ischemia. 2. Single tiny focus of T2 signal abnormality in the LEFT posterior frontal rivera bcortical white matter measuring 3 mm of doubtful clinical significance but can be seen with migraine headaches in a patient this age. This is new since 2017. 3. No other suspicious intracranial signal abnormalities. 4. Mild mucosal thickening in the ethmoid air cells. 5. No hemosiderin on susceptibly weighted images. 6. Temporal lobes and hippocampal formations are normal.
== END 2022-06-06 07:01 | disposition home or self-care (01) ==
LOC: RAD 07:01
PROVIDERS: PCP Nurse Practitioner; Visit Provider Specialist
DX: G43.711 Chronic migraine without aura, intractable, with status migrainosus (principal); R90.89 Other abnormal findings on diagnostic imaging of central nervous system
CPT/HCPCS: 70551

== ENCOUNTER → 2022-06-11 15:08 | Outpatient (BNVA) | payer BC, MEDICAID, SELFPAY | PROVIDERS: PCP Nurse Practitioner; Visit Provider Urology | DX: N39.0 Urinary tract infection, site not specified (principal); R31.0 Gross hematuria | CPT/HCPCS: 81003 ==

== ENCOUNTER → 2022-07-06 10:05 | Outpatient (BNVA) | payer BC, MEDICAID, SELFPAY | PROVIDERS: PCP Nurse Practitioner; Visit Provider Emergency Medicine | DX: J02.9 Acute pharyngitis, unspecified (principal) | CPT/HCPCS: 87071; 87880 ==

== ENCOUNTER → 2022-07-10 13:55 | Outpatient (BNVA) | payer BC, MEDICAID, SELFPAY | PROVIDERS: PCP Nurse Practitioner; Visit Provider Nurse Practitioner Women's Health | DX: Z30.9 Encounter for contraceptive management, unspecified (principal) | CPT/HCPCS: 76856; 81025 ==

== ENCOUNTER 2022-07-15 07:47 | Outpatient (CLI) | payer BC, MEDICAID, SELFPAY ==
--- NOTE | 2022-07-15 08:32 | MM_ITS ---
WS: [id number] Bilateral screening 3D tomosynthesis digital mammogram, 07/15/2022 Clinical Data: SCREEN Comparison: 07/27/2020 Findings: The breast parenchymal pattern shows fibroglandular tissue. No spiculated masses or clustered calcifi cations are seen. There are no secondary signs of carcinoma. There are small bilateral lymph nodes in both axilla. MM/[place] [id number] Impression: 1. Negative bilateral mammogram unchanged. 2. Recommend mammograms if necessary. BIRADS: 1-Negative FOLLOW UP: See Report The CAD bakery products checker was used.
== END 2022-07-15 07:48 | disposition home or self-care (01) ==
PROVIDERS: PCP Nurse Practitioner; Visit Provider Obstetrics & Gynecology
DX: Z12.31 Encounter for screening mammogram for malignant neoplasm of breast (principal)
CPT/HCPCS: 77063; 77067

== ENCOUNTER → 2022-08-14 13:05 | Outpatient (BNVA) | payer BC, MEDICAID, SELFPAY | PROVIDERS: PCP Nurse Practitioner; Visit Provider Specialist | DX: Z98.84 Bariatric surgery status (principal) | CPT/HCPCS: 36415; 80053; 82607; 85025 ==

== ENCOUNTER → 2022-08-18 09:16 | Outpatient (BNVA) | payer BC, MEDICAID, SELFPAY | PROVIDERS: PCP Nurse Practitioner; Visit Provider Podiatrist Foot & Ankle Surgery | DX: G57.53 Tarsal tunnel syndrome, bilateral lower limbs (principal) | CPT/HCPCS: 73630 ==

== ENCOUNTER 2022-08-20 12:42 | Outpatient (CLI) | payer BC, MEDICAID, SELFPAY ==
[2022-08-20 13:32] LABS: Basophils # 0.1 10^3/uL (0.0-0.1); Basophils % 0.7 %; Eosinophils % 0.4 %; Hematocrit 36.7 % (37.0-47.0); Hemoglobin 11.3 g/dL (11.5-15.3); Lymphocytes # 2.3 10^3/uL (0.8-4.8); Lymphocytes % 30.4 %; Mean Corpuscular HGB Conc 30.8 g/dL (30.0-36.0); Mean Corpuscular Hemoglobin 25.7 pg (28.0-34.0); Mean Corpuscular Volume 83.6 fl (81-99); Mean Platelet Volume 12.7 fL (7.4-10.4); Monocytes # 0.6 10^3/uL (0.2-0.9); Monocytes % 7.4 %; Neutrophils # 4.64 10^3/uL (1.8-7.7); Neutrophils % 60.8 %; Nucleated Red Blood Cells % 0 %; Platelet Count 271 10^3/cmm (130-400); Red Blood Count 4.39 10^6/uL (4.1-5.3); Red Cell Distribution Width 12.9 % (12.1-15.1); White Blood Count 7.6 10^3/uL (4.0-10.0)
[2022-08-20 14:15] LABS: Vitamin B12 448 pg/mL (232-1245)
[2022-08-21 11:39] LABS: COMPLEMENT COMPONENT C3C 134 mg/dL (83-193); COMPLEMENT COMPONENT C4C 17 mg/dL (15-57)
[2022-08-21 11:50] LABS: CENTROMERE B ANTIBODY <1.0 NEG AI (<1.0 NEG); JO-1 ANTIBODY <1.0 NEG AI (<1.0 NEG); RNP ANTIBODY <1.0 NEG AI (<1.0 NEG); SCL-70 ANTIBODY <1.0 NEG AI (<1.0 NEG); SJOGREN'S ANTIBODY (SS-A) <1.0 NEG AI (<1.0 NEG); SM ANTIBODY <1.0 NEG AI (<1.0 NEG); SS-B <1.0 NEG AI (<1.0 NEG)
[2022-08-21 12:49] LABS: Cyclic Citrullinated Peptide <16 UNITS
[2022-08-21 15:04] LABS: THYROID PEROXIDASE ANTIBODIES 5 IU/mL (<9)
[2022-08-22 07:58] LABS: HLA-B27 NEGATIVE (NEGATIVE)
[2022-08-22 11:48] LABS: ANA PATTERN Nuclear, Homogeneous; ANA SCREEN, IFA POSITIVE (NEGATIVE); ANA TITER 1:40 titer
[2022-08-22 13:14] LABS: COMPLEMENT, TOTAL (CH50) >60 U/mL (31-60)
[2022-08-23 16:13] LABS: DNA AB (DS) CRITHIDIA,IFA NEGATIVE (NEGATIVE)
[2022-08-26 15:18] LABS: Erythrocyte Sedimentation Rate 11 mm/hr (0-15)
== END 2022-08-20 12:43 | disposition home or self-care (01) ==
LOC: LAB 12:44
PROVIDERS: PCP Nurse Practitioner; Visit Provider Podiatrist Foot & Ankle Surgery
DX: G57.50 Tarsal tunnel syndrome, unspecified lower limb (principal); M25.551 Pain in right hip
CPT/HCPCS: 73502; 82607; 85025; 85651; 86140; 86160; 86162; 86200; 86235; 86255; 86376; 86431; 86812

== ENCOUNTER 2022-09-01 12:54 | Outpatient (CLI) | payer BC, MEDICAID, SELFPAY ==
[2022-09-01 13:31] LABS: Basophils # 0.1 10^3/uL (0.0-0.1); Basophils % 0.6 %; Eosinophils # 0.1 10^3/uL (0.0-0.8); Eosinophils % 0.6 %; Hematocrit 35.2 % (37.0-47.0); Hemoglobin 10.8 g/dL (11.5-15.3); Lymphocytes # 1.9 10^3/uL (0.8-4.8); Lymphocytes % 24.2 %; Mean Corpuscular HGB Conc 30.7 g/dL (30.0-36.0); Mean Corpuscular Hemoglobin 25.4 pg (28.0-34.0); Mean Corpuscular Volume 82.6 fl (81-99); Mean Platelet Volume 11.9 fL (7.4-10.4); Monocytes # 0.5 10^3/uL (0.2-0.9); Monocytes % 5.8 %; Neutrophils # 5.38 10^3/uL (1.8-7.7); Neutrophils % 68.4 %; Nucleated Red Blood Cells % 0 %; Platelet Count 337 10^3/cmm (130-400); Red Blood Count 4.26 10^6/uL (4.1-5.3); Red Cell Distribution Width 13.3 % (12.1-15.1); White Blood Count 7.9 10^3/uL (4.0-10.0)
[2022-09-01 13:53] LABS: Calcium 9.4 mg/dL (8.5-10.5); Estmated Average Glucose 105; Hemoglobin A1C 5.3 % (4.0-6.0)
[2022-09-01 13:54] LABS: Chol HDL Ratio 2.89 mg/dL (0.0-4.40); Cholesterol 133 mg/dL (0-200); Ferritin 7 ng/mL (15-150); HDL Cholesterol 46 mg/dL (60-100); Iron 15 ug/dL (37-145); LDL Cholesterol Calculated 70 mg/dL (50-129); LDL HDL Ratio 1.52 RATIO (0.00-3.22); Triglycerides 85 mg/dL (0-150)
[2022-09-01 14:10] LABS: 25 Hydroxy Vitamin D 31 ng/mL (30-100)
[2022-09-01 14:54] LABS: Parathyroid Hormone 59.2 pg/mL (15-65)
[2022-09-01 15:04] LABS: Folate Level 17.7 ng/mL (4.8-37.3)
[2022-09-03 15:54] LABS: Copper Level 91 mcg/dL (70-175)
== END 2022-09-01 12:55 | disposition home or self-care (01) ==
LOC: LAB 13:02
PROVIDERS: PCP Nurse Practitioner; Visit Provider Surgery
DX: K91.2 Postsurgical malabsorption, not elsewhere classified (principal); Z98.84 Bariatric surgery status
CPT/HCPCS: 36415; 80061; 82306; 82310; 82525; 82728; 82746; 83036; 83540; 83970; 85025

== ENCOUNTER → 2022-09-17 10:27 | Outpatient (BNVA) | payer BC, MEDICAID, SELFPAY | PROVIDERS: PCP Nurse Practitioner; Visit Provider Internal Medicine | DX: R53.83 Other fatigue (principal); R76.8 Other specified abnormal immunological findings in serum | CPT/HCPCS: 80053; 82306; 82533; 82550; 82607; 82784; 83516; 83735; 84100; 84425; 85025; 85651; 86140 ==

== ENCOUNTER 2022-10-03 11:46 | Oncology outpatient (recurring) (ONCR) | payer BC, MEDICAID, SELFPAY ==
[2022-10-03 13:30] LABS: Basophils % 0.5 %; Eosinophils # 0.1 10^3/uL (0.0-0.8); Eosinophils % 0.6 %; Hematocrit 32.2 % (37.0-47.0); Hemoglobin 9.9 g/dL (11.5-15.3); Lymphocytes % 23.9 %; Mean Corpuscular HGB Conc 30.7 g/dL (30.0-36.0); Mean Corpuscular Hemoglobin 25.3 pg (28.0-34.0); Mean Corpuscular Volume 82.1 fl (81-99); Monocytes # 0.7 10^3/uL (0.2-0.9); Monocytes % 7.7 %; Neutrophils # 5.61 10^3/uL (1.8-7.7); Neutrophils % 66.8 %; Nucleated Red Blood Cells % 0 %; Platelet Count 262 10^3/cmm (130-400); Red Blood Count 3.92 10^6/uL (4.1-5.3); White Blood Count 8.4 10^3/uL (4.0-10.0)
[2022-10-03 13:50] LABS: Alanine Aminotransferase 15 U/L (0-33); Alkaline Phosphatase 151 U/L (35-105); Anion Gap 12.6 (5-19); Aspartate Amino Transferase 15 U/L (0-32); Blood Urea Nitrogen 8 mg/dL (6-20); Carbon Dioxide 24 mmol/L (22-29); Chloride 105 mmol/L (98-107); Ferritin 8 ng/mL (15-150); Globulin 2.7 g/dL (1.3-4.6); Glomerular Filtration Rate 115.9 mL/min (90-130); Glucose 81 mg/dL (65-115); Iron 20 ug/dL (37-145); Osmolality Calculated 283 mOsm/kg (285-295); Percent Saturation 6.9 % (20-50); Potassium 3.6 mmol/L (3.5-5.1); Sodium 138 mmol/L (136-145); Total Bilirubin 0.3 mg/dL (0.15-1.2); Total Iron Binding Capacity 289 mcg/dl; Total Protein 6.7 g/dL (6.6-8.7); Unsaturated Iron Binding 269 ug/dL (112-347)
[2022-10-03 14:05] LABS: Vitamin B12 335 pg/mL (232-1245)
[2022-10-03 14:06] LABS: Folate Level 12.5 ng/mL (4.8-37.3)
[2022-10-07 09:20] LABS: Methylmalonic Acid 257 nmol/L (87-318)
== END 2022-10-07 23:59 | disposition home or self-care (01) ==
LOC: ONCMED 11:46
PROVIDERS: PCP Nurse Practitioner; Visit Provider Internal Medicine Medical Oncology
DX: D64.9 Anemia, unspecified (principal)
CPT/HCPCS: 36415; 80053; 82607; 82728; 82746; 83540; 83550; 83921; 85025; 85045

== ENCOUNTER 2022-10-07 07:22 | Outpatient (CLI) | payer BC, MEDICAID, SELFPAY | END 2022-10-07 07:23 | disposition home or self-care (01) | LOC: LAB 07:25 | PROVIDERS: PCP Nurse Practitioner; Visit Provider Internal Medicine Medical Oncology | DX: D64.9 Anemia, unspecified (principal) | CPT/HCPCS: 82274 ==

== ENCOUNTER → 2022-10-14 15:30 | Outpatient (BNVA) | payer BC, MEDICAID, SELFPAY | PROVIDERS: PCP Nurse Practitioner; Visit Provider Anesthesiology Pain Medicine | DX: R31.0 Gross hematuria (principal) | CPT/HCPCS: 81003 ==

== ENCOUNTER 2022-10-16 15:17 | Outpatient (CLI) | payer BC, MEDICAID, SELFPAY ==
--- NOTE | 2022-10-16 15:15 | MR_ITS ---
WS: [id number] MRI LUMBAR SPINE NONCONTRAST HISTORY: M54.50 - Low back pain, unspecified COMPARISON: 12/10/2020 TECHNIQUE: Sagittal and axial multisequence imaging is submitted. Small thoracic disc protrusion previously described T9-10 is still apparent. This is seen only on the lift operator localizer. Normal lumbar alignment with no compression fractures or marrow edema. Disc spaces and vertebral body heights are well-preserved. Conus terminates normally at L1-2 disc level. L1-L2: Normal. L2-L3: Mild ligamentum flavum hypertrophy. No stenosis. L3-L4: Mild annular disc bulging with mild ligamentum flavum hypertrophy. There is mild encroachment upon the subarticular recesses. Slight progression since the prior study. L4-L5: Mild annular disc bulging with encroachment upon the ventral thecal sac and subarticular reces ses. Mild central and subarticular recess stenosis. Moderate LEFT and mild RIGHT foraminal stenosis. L5-S1: No stenosis. MR/MR lumbar spine wo con* [id number] IMPRESSION: 1. No acute fracture or marrow edema. 2. Mild disc encroachment upon the subarticular recesses with minimal progress ion since the prior study at L3-4. 3. Mild central and bilateral subarticular recess stenosis at L4-5. 4. Moderate LEFT and mild RIGHT foraminal stenosis at L4-5. No high-grade sten osis. The disc bulging at L4-5 has increased since the prior study.
== END 2022-10-16 15:18 | disposition home or self-care (01) ==
PROVIDERS: PCP Nurse Practitioner; Visit Provider Anesthesiology Pain Medicine
DX: G89.29 Other chronic pain; M48.061 Spinal stenosis, lumbar region without neurogenic claudication
CPT/HCPCS: 72148

== ENCOUNTER 2022-10-31 10:00 | Oncology outpatient (recurring) (ONCR) | payer BC, MEDICAID, SELFPAY ==
[2022-10-21] MEDS: sodium chloride 0.9% 250 ML 75 ML IV (14:00)
[2022-10-21] MEDS: acetaminophen 325 mg Tablet 650 MG PO (14:01)
[2022-10-21] MEDS: diphenhydrAMINE 50 mg/mL SDV 1mL 25 MG IVP (14:02)
[2022-10-21] MEDS: iron sucrose 200 MG in sodium chloride 0.9% (100 ml) 100 ML 220 MG IV (14:27)
[2022-10-21 15:04] VITALS: BP 130/93; PULSE 62; RESP 16; TEMP 37; O2SAT 99
[2022-10-23 13:46] VITALS: BP 134/89; PULSE 102; TEMP 37.1; O2SAT 98
[2022-10-23] MEDS: sodium chloride 0.9% 250 ML 75 ML IV (13:52)
[2022-10-23] MEDS: acetaminophen 325 mg Tablet 650 MG PO (13:52)
[2022-10-23] MEDS: diphenhydrAMINE 50 mg/mL SDV 1mL 25 MG IVP (13:53)
[2022-10-23] MEDS: iron sucrose 200 MG in sodium chloride 0.9% (100 ml) 100 ML 220 MG IV (14:00)
[2022-10-23 14:50] VITALS: BP 126/85; PULSE 74; RESP 16; TEMP 37.2; O2SAT 98
[2022-10-27] MEDS: sodium chloride 0.9% 250 ML 75 ML IV (14:09)
[2022-10-27 14:10] VITALS: BP 130/89; PULSE 84; RESP 16; TEMP 36.8; O2SAT 99
[2022-10-27] MEDS: iron sucrose 200 MG in sodium chloride 0.9% (100 ml) 100 ML 220 MG IV (14:10)
[2022-10-27] MEDS: acetaminophen 325 mg Tablet 650 MG PO (14:10)
[2022-10-27 15:30] VITALS: BP 115/84; PULSE 94; RESP 16; TEMP 37.2; O2SAT 98
[2022-10-27 15:32] VITALS: BP 119/84; PULSE 94; RESP 16; TEMP 37.2; O2SAT 98
[2022-10-29] MEDS: acetaminophen 325 mg Tablet 650 MG PO (13:58)
[2022-10-29] MEDS: iron sucrose 200 MG in sodium chloride 0.9% (100 ml) 100 ML 220 MG IV (14:12)
[2022-10-29] MEDS: sodium chloride 0.9% 250 ML 75 ML IV (14:13)
[2022-10-29 14:20] VITALS: BP 140/92; PULSE 112; RESP 18; TEMP 37.3; O2SAT 98
[2022-10-29 14:55] VITALS: BP 142/89; PULSE 109; RESP 18; TEMP 37.3; O2SAT 98
[2022-10-31] MEDS: acetaminophen 325 mg Tablet 650 MG PO (10:22)
[2022-10-31] MEDS: sodium chloride 0.9% 250 ML IV (10:27)
[2022-10-31] MEDS: iron sucrose 200 MG in sodium chloride 0.9% (100 ml) 100 ML 220 MG IV (10:31)
[2022-10-31 11:18] VITALS: BP 123/84; PULSE 80; RESP 18; TEMP 36.8; O2SAT 96
--- NOTE | 2022-11-11 14:15 | PC.NURSE ---
Laurie.E: Patient iron sucrose ended on 10/21/22 at 1457. Patient was discharged by Melyssa Zelaya.
== END 2022-11-07 23:59 | disposition home or self-care (01) ==
PROVIDERS: PCP Nurse Practitioner; Visit Provider Internal Medicine Medical Oncology
DX: D50.8 Other iron deficiency anemias (principal); Z79.899 Other long term (current) drug therapy
CPT/HCPCS: 96365; 96375; J1200; J1756; J7050

== ENCOUNTER 2022-12-05 15:31 | Oncology outpatient (recurring) (ONCR) | payer BC, MEDICAID, SELFPAY | END 2022-12-07 23:59 | disposition home or self-care (01) | PROVIDERS: PCP Nurse Practitioner; Visit Provider Internal Medicine Medical Oncology | DX: Z53.9 Procedure and treatment not carried out, unspecified reason (principal); D50.9 Iron deficiency anemia, unspecified ==

== ENCOUNTER → 2022-12-09 15:10 | Outpatient (BNVA) | payer BC, MEDICAID, SELFPAY | PROVIDERS: PCP Nurse Practitioner; Visit Provider Family Medicine | DX: D50.8 Other iron deficiency anemias (principal) | CPT/HCPCS: 82728; 83550; 85025 ==

== ENCOUNTER → 2023-03-06 11:46 | Outpatient (BNVA) | payer BC, MEDICAID, SELFPAY | PROVIDERS: PCP Nurse Practitioner; Visit Provider Family Medicine | DX: D50.8 Other iron deficiency anemias (principal); G47.33 Obstructive sleep apnea (adult) (pediatric); D64.9 Anemia, unspecified; R10.9 Unspecified abdominal pain | CPT/HCPCS: 82728; 83540; 85025 ==

== ENCOUNTER 2023-05-22 06:49 | Outpatient (CLI) | payer BC, MEDICAID, SELFPAY ==
--- NOTE | 2023-05-22 | XR_ITS ---
WS: [id number] KUB, AP view, 05/22/2023 Clinical Data: RECURRENT UTI'S Comparison: None. Findings: No abnormal intraabdominal masses or calcifications are seen. There is no dilatated small bowel or ev idence of obstruction. There is a moderate amount of fecal material in the transverse colon. There is an IUD in the region o f the uterus. Impression: Negative KUB.
--- NOTE | 2023-05-22 | US_ITS ---
WS: [id number] RENAL ULTRASOUND HISTORY: RECURRENT UTI'S COMPARISON: None available. TECHNIQUE: 2-D and color Doppler imaging of the kidney submitted. Right kidney: 11.7 cm x 4.4 cm x 4.9 cm. Cortex: 1.3 cm Normal echogenicity with no hydronephrosis or mass. Left kidney: 10.9 cm x 5.1 cm x 4.7 cm. Cortex: 1.1 cm Normal echogenicity with no hydronephrosis or mass. Aorta: Normal. Urinary Bladder: Nondistended. IMPRESSION: Normal renal ultrasound.
== END 2023-05-22 06:50 | disposition home or self-care (01) ==
LOC: RAD 06:57
PROVIDERS: PCP Nurse Practitioner; Visit Provider Urology
DX: N39.0 Urinary tract infection, site not specified (principal)
CPT/HCPCS: 74018; 76770

== ENCOUNTER → 2023-07-21 12:55 | Outpatient (BNVA) | payer BC, MEDICAID, SELFPAY | PROVIDERS: PCP Family Medicine; Visit Provider Family Medicine | DX: E03.9 Hypothyroidism, unspecified (principal); D64.9 Anemia, unspecified; R53.83 Other fatigue; R00.0 Tachycardia, unspecified; G47.33 Obstructive sleep apnea (adult) (pediatric); K90.9 Intestinal malabsorption, unspecified; D50.8 Other iron deficiency anemias | CPT/HCPCS: 80053; 82607; 82728; 82746; 83550; 84443; 85025; 85045 ==

== ENCOUNTER 2023-07-23 08:44 | Outpatient (CLI) | payer BC, MEDICAID, SELFPAY ==
--- NOTE | 2023-07-23 08:51 | MM_ITS ---
WS: [id number] Bilateral screening 3D tomosynthesis digital mammogram, 07/23/2023 Clinical Data: SCREENING Comparison: 07/15/2022, 07/27/2020. Findings: The breast parenchymal pattern shows fibroglandular tissue. No spiculated masses or clustered calcifi cations are seen. There are no secondary signs of carcinoma. Impression: 1. Negative bilateral mammogram unchanged. 2. Recommend annual screening mammograms. MM/[place] [id number] BIRADS: 1-Negative FOLLOW UP: 1 Year Follow-up The CAD bill checker was used.
== END 2023-07-23 08:45 | disposition home or self-care (01) ==
LOC: RAD 08:44
PROVIDERS: PCP Family Medicine; Visit Provider Nurse Practitioner Women's Health
DX: Z12.31 Encounter for screening mammogram for malignant neoplasm of breast (principal)
CPT/HCPCS: 77063; 77067

== ENCOUNTER → 2023-07-28 10:01 | Outpatient (BNVA) | payer BC, MEDICAID, SELFPAY | PROVIDERS: PCP Family Medicine; Visit Provider Nurse Practitioner | DX: R05.9 Cough, unspecified (principal); U07.1 COVID-19 | CPT/HCPCS: 87426 ==

== ENCOUNTER 2023-08-17 07:34 | Outpatient (CLI) | payer BC, MEDICAID, SELFPAY ==
[2023-08-17 07:59] LABS: Basophils % 0.4 %; Eosinophils # 0.1 10^3/uL (0.0-0.8); Eosinophils % 1.2 %; Hematocrit 38.7 % (36-47); Lymphocytes % 41.3 %; Mean Corpuscular HGB Conc 34.4 g/dL (30-55); Mean Corpuscular Hemoglobin 30.8 pg (27-33); Mean Corpuscular Volume 89.6 fl (85-98); Mean Platelet Volume 11.1 fL (7.4-10.4); Monocytes # 0.5 10^3/uL (0.2-0.9); Monocytes % 9.5 %; Neutrophils % 47.6 %; Nucleated Red Blood Cells % 0 %; Platelet Count 224 10^3/cmm (157-399); Red Blood Count 4.32 10^6/uL (3.85-5.65); Red Cell Distribution Width 12.4 % (12.1-15.1); White Blood Count 4.84 10^3/uL (3.29-11.43)
[2023-08-17 08:27] LABS: Alanine Aminotransferase 14 U/L (0-33); Albumin Level 4.2 g/dL (3.5-5.2); Anion Gap 13.9 (5-19); Aspartate Amino Transferase 12 U/L (0-32); Blood Urea Nitrogen 8 mg/dL (6-20); Carbon Dioxide 26 mmol/L (22-29); Chloride 104 mmol/L (98-107); Chol HDL Ratio 3.02 mg/dL (0.0-4.40); Cholesterol 127 mg/dL (0-200); Ferritin 30 ng/mL (15-150); Glomerular Filtration Rate 96.4 mL/min (90-130); Glucose 85 mg/dL (65-115); HDL Cholesterol 42 mg/dL (60-100); Iron 125 ug/dL (37-145); Osmolality Calculated 288 mOsm/kg (285-295); Percent Saturation 55.8 % (20-50); Potassium 3.9 mmol/L (3.5-5.1); Sodium 140 mmol/L (136-145); Total Bilirubin 0.7 mg/dL (0.15-1.2); Total Iron Binding Capacity 224 mcg/dl; Total Protein 7.2 g/dL (6.6-8.7); Triglycerides 63 mg/dL (0-150); Unsaturated Iron Binding 99 ug/dL (112-347)
[2023-08-17 08:28] LABS: Alkaline Phosphatase 121 U/L (35-105); LDL Cholesterol Calculated 72 mg/dL (50-129); LDL HDL Ratio 1.71 RATIO (0.00-3.22)
[2023-08-17 08:31] LABS: Parathyroid Hormone 104.7 pg/mL (15-65)
[2023-08-17 08:43] LABS: 25 Hydroxy Vitamin D 26 ng/mL (30-100); Vitamin B12 256 pg/mL (232-1245)
[2023-08-17 10:16] LABS: Folate Level > 20.0 ng/mL (4.8-37.3)
[2023-08-20 15:00] LABS: Copper Level 74 mcg/dL (70-175)
[2023-08-23 09:59] LABS: Vitamin B1 (Thiamine),Blood 128 nmol/L (78-185)
== END 2023-08-17 07:35 | disposition home or self-care (01) ==
LOC: LAB 07:35
PROVIDERS: PCP Family Medicine; Visit Provider Surgery
DX: K90.9 Intestinal malabsorption, unspecified (principal); Z68.32 Body mass index [BMI] 32.0-32.9, adult; Z98.84 Bariatric surgery status
CPT/HCPCS: 36415; 80053; 80061; 82306; 82310; 82525; 82607; 82728; 82746; 83540; 83550; 83970; 84425; 85025

== ENCOUNTER 2023-10-19 12:08 | Outpatient (CLI) | payer BC, MEDICAID, SELFPAY ==
[2023-10-26 19:49] LABS: Pancreatic Elastase-1 29 mcg/g
== END 2023-10-19 12:09 | disposition home or self-care (01) ==
LOC: LAB 12:10
PROVIDERS: PCP Family Medicine; Visit Provider Nurse Practitioner Family
DX: K90.9 Intestinal malabsorption, unspecified (principal); Z98.84 Bariatric surgery status
CPT/HCPCS: 83520

== ENCOUNTER 2024-02-05 09:04 | Oncology outpatient (recurring) (ONCR) | payer BC, MEDICAID, SELFPAY ==
[2024-02-05 09:18] VITALS: BP 132/86; PULSE 81; RESP 16; TEMP 36.9; O2SAT 97
--- NOTE | 2024-02-05 09:20 | PC.NURSE ---
patient has history of migraines, has been in [facility] this week for scheduled procedures for gall bladder assessment and EGD.
[2024-02-05] MEDS: sodium chloride 0.9% 250 ML 100 ML IV (09:44)
[2024-02-05] MEDS: eptinezumab-jjmr 100 MG in sodium chloride 0.9% (100 ml) 100 ML 202 MG IV (09:45)
[2024-02-05 10:46] VITALS: BP 134/92; PULSE 88; RESP 16; TEMP 36.6; O2SAT 99
== END 2024-02-07 23:59 | disposition home or self-care (01) ==
PROVIDERS: PCP Family Medicine; Visit Provider Specialist
DX: G43.709 Chronic migraine without aura, not intractable, without status migrainosus (principal)
CPT/HCPCS: 96365; A4222; J3032; J7050

== ENCOUNTER → 2024-04-14 13:28 | Outpatient (BNVA) | payer BC, MEDICAID, SELFPAY | PROVIDERS: PCP Family Medicine; Visit Provider Nurse Practitioner Women's Health | DX: N93.9 Abnormal uterine and vaginal bleeding, unspecified (principal) | CPT/HCPCS: 87491; 87591 ==

== ENCOUNTER 2024-04-29 08:50 | Oncology outpatient (recurring) (ONCR) | payer BC, MEDICAID, SELFPAY ==
[2024-04-29 09:10] VITALS: BP 156/92; PULSE 67; RESP 16; TEMP 36.9; O2SAT 99
[2024-04-29] MEDS: eptinezumab-jjmr 100 MG in sodium chloride 0.9% (100 ml) 100 ML 202 MG IV (09:35)
== END 2024-05-09 23:59 | disposition home or self-care (01) ==
PROVIDERS: PCP Family Medicine; Visit Provider Specialist
DX: G43.909 Migraine, unspecified, not intractable, without status migrainosus (principal); Z79.899 Other long term (current) drug therapy
CPT/HCPCS: 96413; A4222; J3032

== ENCOUNTER → 2024-05-02 10:49 | Outpatient (BNVA) | payer BC, MEDICAID, SELFPAY | PROVIDERS: PCP Family Medicine; Visit Provider Nurse Practitioner Women's Health | DX: R10.2 Pelvic and perineal pain (principal); N93.9 Abnormal uterine and vaginal bleeding, unspecified | CPT/HCPCS: 76830 ==

== ENCOUNTER → 2024-05-24 09:16 | Outpatient (BNVA) | payer BC, MEDICAID, SELFPAY | PROVIDERS: PCP Family Medicine; Visit Provider Family Medicine | DX: I10 Essential (primary) hypertension (principal); F41.8 Other specified anxiety disorders; E28.2 Polycystic ovarian syndrome; K29.70 Gastritis, unspecified, without bleeding; R10.9 Unspecified abdominal pain; D64.9 Anemia, unspecified; R76.8 Other specified abnormal immunological findings in serum; M51.9 Unspecified thoracic, thoracolumbar and lumbosacral intervertebral disc disorder; G47.00 Insomnia, unspecified; E55.9 Vitamin D deficiency, unspecified; E03.9 Hypothyroidism, unspecified | CPT/HCPCS: 80053; 80061; 82607; 82652; 84443; 85025 ==

== ENCOUNTER 2024-06-12 08:14 | Emergency (ER) | payer BC, MEDICAID, SELFPAY ==
--- NOTE | 2024-06-12 08:24 | W.ED.HA ---
HPI - Headache General: Chief Complaint: Headache Stated Complaint: painful mirgraine Time Seen by Provider: 06/12/24 08:17 Source: patient Mode of arrival: ambulatory Limitations: no limitations History of Present Illness: 34-year-old female has a long history of migraines that she has had a worsening migraine this week states it began gradually is now on 9 out of 10 she does have photophobia and phonophobia she denies any fevers denies this being the worst headache of her life this is like her similar migraines Associated symptoms: Deny chest pain, fever(s), nausea or vomiting Related Data Home Medications Medication Instructions Recorded Confirmed docusate sodium 100 mg capsule 100 mg PO DAILY 06/25/23 04/14/24 (Dulcolax Stool Softener (docusate)) folic acid 1 mg tablet 1 mg PO DAILY 06/25/23 04/14/24 semaglutide 0.25 mg or 0.5 mg (2 mg SUBCUT 04/14/24 04/14/24 mg/3 mL) subcutaneous pen injector Previous Rx's Medication Instructions Recorded famotidine 40 mg tablet 40 mg PO .qhs #1 tab 11/03/23 qbwqui-ljdapvpn-wwofakq 2 cap PO TID #1 cap 11/03/23 36,000-114,000-180,000 unit capsule,delay rel metronidazole 500 mg tablet 500 mg PO BID #14 tabs 11/03/23 sucralfate 100 mg/mL oral 10 ml PO .q6hrs #400 mL 11/03/23 suspension eptinezumab-jjmr 100 mg/mL 100 mg IV ONCE #1 mL 01/22/24 intravenous solution (Vyepti) venlafaxine 75 mg capsule,extended 75 mg PO DAILY #30 caps 01/22/24 release 24 hr estradiol 0.025 mg/24 hr 1 patch transdermal .twice weekly 04/14/24 semiweekly transdermal patch #24 ea clonidine 0.1 mg/24 hr weekly See Rx Instructions .Route 04/26/24 transdermal patch .COMPLEX #4 patches alprazolam 1 mg tablet 1 mg PO BID PRN stress #60 tabs 05/23/24 mecobalamin (vitamin B12) 1,000 1,000 mcg PO DAILY B12 def #90 tabs 06/01/24 mcg chewable tablet Allergies Allergy/AdvReac Type Severity Reaction Status Date / Time Pertussis Vaccines Allergy Severe SOB Verified 05/24/24 08:44 Penicillins Allergy Mild rash--can Verified 05/24/24 08:44 take Keflex vancomycin Allergy Mild itching Verified 05/24/24 08:44 Review of Systems Const: Denies: fever(s) or chills Eyes: Denies: blurry vision or eye discomfort ENMT: Denies: throat pain or dental pain Card: Denies: chest pain Resp: Denies: dyspnea GI: Denies: abdominal pain, nausea, vomiting or diarrhea Musc: Denies: neck pain or back pain Neuro: Reports: headache(s) PFSH ED PFSH: Medical History Recurrent urinary tract infection GERD (gastroesophageal reflux disease) PCOS (polycystic ovarian syndrome) (~2018) -Diagnosed with PCO S based on irregular cycles, morbid obesity and excessive hair growth. Anxiety with depression Symptoms since a teenager and is managed on medication by her primary care provider. She does not have a therapist or a psychiatrist Migraine without aura Since her teenage years and is managed with medication and Botox by Dr. Dunn Sinus tachycardia Diagnosed in 2019 and is managed with propranolol and follows with cardiology---Dr. Contreras/Adrián and PMD Surgical History History of resection of stomach 09/06/21 in [place], [place]-- performed due to stricture and erosion. She reports her stomach is approximately 1.5in in size. History of dilation and curettage 08/19/2012---done by Dr. Mahan at [facility] for heavy bleeding. 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 Garcia/Kalli History of tonsillectomy and adenoidectomy As a child S/P laparoscopic sleeve gastrectomy (~11/2018) Performed by Dr. Rosado at [facility]. History of bilateral carpal tunnel release Rt:2016 Lt:2018 History of placement of ear tubes X4 --between the ages of 3 and 10 H/O release of tendon (~09/2017) left wrist for de Quervain's disease Family History Grandmother Hypertension Paternal Diabetes Paternal Heart disease Paternal Stroke Paternal Mother Diabetes Breast cancer dx at age 44 Heart disease L ventricular hypertrophy Thyroid disease Grandfather Diabetes Maternal Colon cancer Paternal unknown age of dx Sister Hypertension Father Heart disease Denies family history of Ovarian cancer Hypercholesteremia Uterine cancer Social History Smoking and tobacco/nicotine status: never used tobacco/nicotine Physical Exam Const: COMMON NORMALS: no acute distress, patient oriented x3 and healthy appearing HENMT: COMMON NORMALS: normocephalic and atraumatic HEAD & SCALP: normocephalic and atraumatic Eye: COMMON NORMALS: conjunctivae normal CONJUNCTIVA: Yes conjunctivae normal Neck/C-Spine: COMMON NORMALS: full ROM and supple Chest: COMMONS NORMALS: normal inspection of the chest Resp: COMMON NORMALS: normal respiratory effort Cardio: COMMON NORMALS: regular rate, regular rhythm and No murmurs present (Cardio) RATE: regular rate RHYTHM: regular rhythm Extremity: COMMON NORMALS: normal to inspection and full ROM Neuro: COMMON NORMALS: patient oriented x3, moves all extremities and no focal motor deficits Psych: COMMON NORMALS: mental status grossly normal, Normal thought process present and cooperative THOUGHT PROCESS: Normal thought process present Skin: COMMON NORMALS: no rashes or lesions noted and no wounds GENERAL SKIN EXAM: no rashes or lesions noted MDM - Headache Medical Decision Making Patient presents here with headaches likely migraine headache she has no signs of subarachnoid hemorrhage or meningitis she feels improved here after Reglan Benadryl and Toradol she is stable for discharge follow-up with PCP and return if worsening. Medical Records I reviewed the patient's medical records. No radiology studies performed this visit Discharge Plan Discharge Patient Disposition: Home Clinical Impression: Headache Condition: Stable Prescriptions: No Action docusate sodium [Dulcolax Stool Softener (dss)] 100 mg capsule 100 mg PO DAILY folic acid 1 mg tablet 1 mg PO DAILY semaglutide 0.25 mg or 0.5 mg (2 mg/3 mL) pen injector SUBCUT estradiol 0.025 mg/24 hr patch semiweekly 1 patch transdermal .twice weekly Qty: 24 0RF Vyepti 100 mg/mL solution 100 mg IV ONCE Qty: 1 5RF Rx Instructions: every 3 months IV venlafaxine 75 mg capsule,extended release 24hr 75 mg PO DAILY Qty: 30 5RF sucralfate 100 mg/mL suspension 10 ml PO .q6hrs Qty: 400 0RF famotidine 40 mg tablet 40 mg PO .qhs Qty: 1 0RF wthhbv-woagvfzu-ydwxhel 36,000-114,000- 180,000 unit capsule,delayed release(DR/EC) 2 cap PO TID Qty: 1 0RF Rx Instructions: administer with meals and/or snacks metronidazole 500 mg tablet 500 mg PO BID Qty: 14 0RF clonidine 0.1 mg/24 hr patch weekly See Rx Instructions .ROUTE .COMPLEX Qty: 4 1RF Dose Instruction: APPLY ONE PATCH transdermally every week Rx Instructions: APPLY ONE PATCH transdermally every week alprazolam 1 mg tablet 1 mg PO BID PRN (Reason: stress) Qty: 60 2RF mecobalamin (vitamin B12) 1,000 mcg tablet,chewable 1,000 mcg PO DAILY Qty: 90 1RF Discharge Orders: Discharge ED (Routine); Ordered 06/12/24 Ordered By: Jama Pappas Referrals: Alex Hurd, [Primary Care Provider] - 4-7 days Discharge Diet: Advance as tolerated Discharge Activity: Resume usual activity Patient Instructions: Headache Coding Level of Care Code ED Student Services Rep for Marsha Velázquez
[2024-06-12] MEDS: diphenhydrAMINE 50 mg/mL SDV 1mL IVP (08:39)
[2024-06-12] MEDS: metoclopramide 5 mg/mL SDV 2 mL 10 MG IVP (08:39)
[2024-06-12] MEDS: ketorolac 30 mg/mL INJ IVP (08:39)
[2024-06-12 09:15] VITALS: BP 125/87; PULSE 71; RESP 16; O2SAT 97
== END 2024-06-12 09:16 | disposition home or self-care (01) ==
PROVIDERS: Emergency Provider Emergency Medicine; PCP Family Medicine
DX: R51.9 Headache, unspecified (principal)
CPT/HCPCS: 96374; 96375; 99284; J1200; J1885; J2765

== ENCOUNTER 2024-07-22 08:39 | Oncology outpatient (recurring) (ONCR) | payer BC, MEDICAID, SELFPAY ==
[2024-07-22 09:00] VITALS: BP 117/78; PULSE 85; RESP 16; TEMP 36.8; O2SAT 99
[2024-07-22] MEDS: eptinezumab-jjmr 100 MG in sodium chloride 0.9% (100 ml) 100 ML 202 MG IV (09:29)
[2024-07-22 10:17] VITALS: BP 124/85; PULSE 71; RESP 16; TEMP 36.5; O2SAT 99
== END 2024-08-09 23:59 | disposition home or self-care (01) ==
LOC: ONCMED 08:40
PROVIDERS: PCP Family Medicine; Visit Provider Specialist
DX: G43.909 Migraine, unspecified, not intractable, without status migrainosus (principal); Z79.899 Other long term (current) drug therapy
CPT/HCPCS: 96365; 96413; A4222; J3032

== ENCOUNTER 2024-08-04 07:47 | Outpatient (CLI) | payer BC, MEDICAID, SELFPAY ==
--- NOTE | 2024-08-04 07:51 | MM_ITS ---
WS: [id number] BILATERAL SCREENING DIGITAL TOMOSYNTHESIS MAMMOGRAM WITH CAD HISTORY: SCREENING COMPARISON: 07/23/2023, 07/15/2022 and 07/27/2020 Bilateral CC and MLO views with tomosynthesis and synthetic mammography submitted. Computer aided det ection analyzed. Breast composition: The breasts are heterogeneously dense, which may obscure small masses. No suspici ous masses, microcalcifications or architectural distortion. Benign lymph node upper outer quadrant R IGHT breast. MM/MM scr BI tomosynthesis [id number] IMPRESSION: BI-RADS: 2 - Benign FOLLOW UP: 1 Year Follow-up
== END 2024-08-04 07:48 | disposition home or self-care (01) ==
PROVIDERS: PCP Family Medicine; Visit Provider Nurse Practitioner Women's Health
DX: Z12.31 Encounter for screening mammogram for malignant neoplasm of breast (principal); R92.333 Mammographic heterogeneous density, bilateral breasts
CPT/HCPCS: 77063; 77067

== ENCOUNTER 2024-10-31 07:28 | Outpatient (CLI) | payer BC, MEDICAID, SELFPAY ==
[2024-10-31 10:54] LABS: Vitamin B12 248 pg/mL (232-1245)
== END 2024-10-31 07:29 | disposition home or self-care (01) ==
PROVIDERS: PCP Family Medicine; Visit Provider Psychiatry & Neurology Neurology
DX: G62.9 Polyneuropathy, unspecified (principal)
CPT/HCPCS: 36415; 82607; 86335

== ENCOUNTER 2024-11-03 08:30 | Outpatient (CLI) | payer BC, MEDICAID, SELFPAY | END 2024-11-03 08:31 | disposition home or self-care (01) | PROVIDERS: PCP Family Medicine; Visit Provider Psychiatry & Neurology Neurology | DX: G62.9 Polyneuropathy, unspecified (principal) | CPT/HCPCS: 36415; 84155; 84165 ==

== ENCOUNTER → 2024-12-22 15:07 | Outpatient (BNVA) | payer BC, MEDICAID, SELFPAY | PROVIDERS: PCP Family Medicine; Visit Provider Orthopaedic Surgery | DX: M54.50 Low back pain, unspecified (principal) | CPT/HCPCS: 72110 ==

== ENCOUNTER 2024-12-27 06:25 | Outpatient (CLI) | payer BC, MEDICAID, SELFPAY ==
--- NOTE | 2024-12-27 06:30 | MR_ITS ---
WS: [id number] MRI LUMBAR SPINE NONCONTRAST HISTORY: Chronic low back pain. Bilateral lower extremity pain. COMPARISON: 10/16/2022 TECHNIQUE: Sagittal and axial multisequence imaging is submitted. Normal lumbar alignment with no compression fractures or marrow edema. Disc spaces and vertebral body heights are well-preserved. Conus terminates normally at L1-2 disc level. L1-L2: Normal. L2-L3: Mild disc bulging. Small amount of fluid in the LEFT facet joint. There is very slight disc encroachment upon the subarticular recesses and traversing L3 nerve roots. No significant stenosis. L3-L4: Mild annular disc bulging with ligamentum flavum and facet arthritis. There is mild disc encroachment upon the ventral thecal sac including the traversing L4 nerve roots. Very mild foraminal narrowing. L4-L5: Diffuse annular disc bulging with a tiny central disc protrusion. Ligamentum flavum and facet arthritis. There is mild disc encroachment upon the thecal sac including the traversing L5 nerve roots, RIGHT greater than LEFT. No progression since the prior study. Mild central, subarticular recess and bilateral foraminal stenosis. L5-S1: Mild disc bulging with a very shallow central disc protrusion. Slightly less contact on the RIGHT S1 nerve root. No significant stenosis. Paravertebral soft tissues are negative. MR/MR lumbar spine wo con* [id number] IMPRESSION: 1. No high-grade central or foraminal stenosis. No fracture or marrow edema. 2. L4-5: Mild disc bulging with a tiny central disc protrusion. Mild disc encr oachment upon the traversing L5 nerve roots, RIGHT greater than LEFT. No progre ssion from the prior exam. Mild central, subarticular recess and bilateral fora roger stenosis. 3. Mild disc encroachment upon the traversing L3 and L4 nerve roots.
== END 2024-12-27 06:26 | disposition home or self-care (01) ==
PROVIDERS: PCP Family Medicine; Visit Provider Orthopaedic Surgery
DX: M48.061 Spinal stenosis, lumbar region without neurogenic claudication (principal); M51.362 Other intervertebral disc degeneration, lumbar region with discogenic back pain and lower extremity pain; M24.28 Disorder of ligament, vertebrae; M47.896 Other spondylosis, lumbar region; M51.372 Other intervertebral disc degeneration, lumbosacral region with discogenic back pain and lower extremity pain
CPT/HCPCS: 72148

== ENCOUNTER → 2025-02-14 09:51 | Outpatient (BNVA) | payer BC, MEDICAID, SELFPAY | PROVIDERS: PCP Family Medicine; Visit Provider Family Medicine | DX: F41.8 Other specified anxiety disorders (principal); I10 Essential (primary) hypertension; E53.8 Deficiency of other specified B group vitamins; K86.89 Other specified diseases of pancreas; D64.9 Anemia, unspecified; L98.7 Excessive and redundant skin and subcutaneous tissue | CPT/HCPCS: 80053; 80061; 82607; 83036; 85025 ==

== ENCOUNTER → 2025-05-10 08:44 | Outpatient (BNVA) | payer BC, MEDICAID, SELFPAY | PROVIDERS: PCP Family Medicine; Visit Provider Family Medicine | DX: E86.0 Dehydration (principal); I10 Essential (primary) hypertension; R00.0 Tachycardia, unspecified; N39.0 Urinary tract infection, site not specified | CPT/HCPCS: 80053 ==

== ENCOUNTER → 2025-05-31 10:06 | Outpatient (BNVA) | payer BC, MEDICAID, SELFPAY | PROVIDERS: PCP Family Medicine; Visit Provider Nurse Practitioner Women's Health | DX: N93.9 Abnormal uterine and vaginal bleeding, unspecified (principal) | CPT/HCPCS: 87624 ==

== ENCOUNTER → 2025-06-06 07:50 | Outpatient (BNVA) | payer BC, MEDICAID, SELFPAY | PROVIDERS: PCP Family Medicine; Visit Provider Nurse Practitioner Women's Health | DX: N93.9 Abnormal uterine and vaginal bleeding, unspecified (principal); Z96.0 Presence of urogenital implants | CPT/HCPCS: 76856 ==

== ENCOUNTER → 2025-06-13 08:52 | Outpatient (BNVA) | payer BC, MEDICAID, SELFPAY | PROVIDERS: PCP Family Medicine; Visit Provider Orthopaedic Surgery | DX: Z01.818 Encounter for other preprocedural examination (principal) | CPT/HCPCS: 80053; 81001; 85025 ==

== ENCOUNTER 2025-06-29 02:49 | Emergency (ER) | payer BC, MEDICAID, SELFPAY ==
--- OUTSIDE RECORDS SUMMARY | 2024-12-30 11:00 | XMS_ITS ---
Author Organization [facility] Address [address] [place] [address] Care Team Providers Care Die Maintenance Name Role Phone Alex Hurd Primary Care Provider UnavailFABRIZIO De Los Santos Unavailable [phone] Ant Lovett Unavailable Unavailable Carmelo Rea Unavailable [phone] REASON FOR VISIT Refills Encounters Encounter Location Date Provider Diagnosis [facility] [address] [place] [facility] [place] [address] 12/30/2024 Carmelo Rea Plan Of Treatment No Information Progress Notes * Dora RUFFIN DDOB:1989 (35 yo F)Acc No.[id number]:12/30/2024 Progress Notes Patient: Frank Dora CLEMENTS Provider: Jaleel Rea APRN :1990 A ge:34 Y S ex:Female Date:12/30/2024 Address:[address] [place], [place] [id number] Pcp:Alex Hurd Subjective: * Chief Complaints: * 1 . Refills. * Medical History: Objective: * Vitals: Assessment: Plan: * Treatment: * Billing Information: * Visit Code: * Procedure Codes: * Electronic signature of Humberto Rea APRN on 06/29/2025 at 03:01 AM HAND BOBBIN CLEANER Sign off status: Pending * Provider: Jaleel Rea APRN Date: 0 12/30/2024 Generated for Printi ng/Fawalig/eTransmitting on: 08/29/2024 03:01 AM HAND BOBBIN CLEANER
[2025-06-29 02:52] VITALS: BP 139/105; PULSE 89; RESP 18; TEMP 36.4; O2SAT 100; BMI 29.2
--- OUTSIDE RECORDS SUMMARY | 2025-06-29 03:01 | XMS_ITS | Encounter Summary ---
Author Organization [facility] Address [address] [place] [address] Phone Care Team Providers Care Loan Auditor Name Role Phone Ilda Lopez MD Primary Care Provider [phone] Encounter Details Date Type Department Care Team (Late st Contact Info) Description 06/25/2021 Orders Only [facility] [facility] [address] [place] [address] Disorder of kidney and ureter, unspecified; Hyperparathyroidism, not otherwise specified (HCC) Social History Tobacco Use Types Packs/Day Years Used Date Smoking Tobacco: Never Assessed Comments Unknown Sex and Gender Information Value Date Recorded Sex Assigned at Not on file Legal Sex Female 11:21 AM EST Gender Identity Not on file Sexual Orientation Not on file documented as of this encounter Plan of Treatment Not on file documented as of this encounter Visit Diagnoses Diagnosis Disorder of kidney and ureter, unspecified Hyperparathyroidism, not otherwise specified (HCC) documented in this encounter Care Teams Loan Auditor Relationship Specialty Start Date End Date Ilda Lopez MD [address] [facility] [place] [address] PCP - General Family Medicine 06/25/21 documented as of this encounter
--- OUTSIDE RECORDS SUMMARY | 2025-06-29 03:02 | XMS_ITS | Patient Health Record ---
Author Organization [facility] [employer] [facility] Address [address] [place] [address] Care Team Providers Care Cosmetic Sales Assistant Name Role Phone Alex Hurd Primary Care Provider UnavailFABRIZIO De Los Santos Unavailable [phone] Ant Lovett Unavailable Unavailable Carmelo Rea Unavailable [phone] Allergies Allergen (clinical drug ingredient) Drug/Non Drug Allergy documented on EMR Reaction Allergy Type Onset Date Status Substance with penicillin structure and antibacterial mechanism of action (substance) Penicillins Unknown Drug Allergy Active Vaccine product containing Bordetella pertussis antigen (medicinal product) pertussis vaccines Unknown Drug Allergy Ac tive vancomycin Vancomycin itchy Drug Allergy Activ e Reason For Referral No Information Medications Medication SIG (Take, Route, Frequency, Duration) Notes Start Date End Date Status Galcanezumab-gnlm 120 MG/ML as directed Subcutaneous 05/11/2023 Active Metoprolol Tartrate 25 MG 1 tablet with food Orally Twice a day; Duration: 30 days Not-Taking Pantoprazole Sodium 40 MG 1 tablet Orally Once a day 05/11/2023 Active Lasix 20 MG 1 tablet Orally BID prn; Duration: 30 day(s) 04/06/2017 Not-Taking Labetalol HCl 100 MG 1/2 tab(s) po qd Oral; Duration: 30 Labetalol HCl 100mg Tablet 1/2 tab(s) po qd #30 (Thirty) tablet(s) 03/03/2012 Not-Taking Implanon 68 mg SUBCUTANEOUS; Duration: 0 *please review for potential update for e-prescription and drug interaction check* Implanon 68mg Implant *Reorder from [employer] for eRx and Interaction Alerts* 03/03/2012 Not-Taking Flonase Allergy Relief 50 MCG/ACT 1 spray in each nostril Nasally Once a day Not-Taking Mobic 15 MG 1 tablet Orally Once a day; Duration: 30 day(s) 04/06/2017 Not-Taking Botox 100 UNIT Injection Not-T aking Venlafaxine HCl ER 150 MG 1 tablet with food Orally Once a day 05/11/2023 Active Biotin Maximum Strength 01182 MCG 1 tablet Orally Once a day Not-Taking Nitrofurantoin Monohyd Macro 100 mg take 1 capsule BY MOUTH with food EVERY TWELVE HOURS FOR 14 DAYS; Duration: 14 Active Effexor XR 150 MG 1 capsule with food Orally Once a day Not-Taking Topamax 50 MG Take 1 tablet(s) by mouth bid Oral; Duration: 30 Topamax (Topiramate) 50mg Tablet Take 1 tablet(s) by mouth bid #60 (Sixty) tablet(s) 04/19/2012 Not-Taking Cheratussin AC 100-10 MG/5ML 1-2 tsp Orally every 4 hours prn; Duration: 14 days *Reorder from [employer] for eRx and Interaction Alerts* 04/27/2017 Not-Taking Doxycycline Hyclate 100 MG 1 tablet Orally every 12 hrs; Duration: 10 days 05/15/2017 Not-Taking ZyrTEC Allergy 10 MG 1 tablet Orally Once a day Not-Taking Meloxicam 15 MG Oral Tablet meloxicam 15 MG Oral Tablet *Reorder from [employer] for eRx and Interaction Alerts* 09/21/2014 Not-Taking Tessalon Perles 100 MG 1 capsule as needed Orally Three times a day; Duration: 15 days 05/07/2017 Not-Taking Problems Problem Type SNOMED Code ICD Code Onset Dates Problem Status W/U Status Risk Notes Problem Polycystic ovary syndrome (disorder) (475754782) Polycystic ovarian syndrome (E28.2) Active confirmed Problem Obesity (593313105) Obesity, unspecified (E66.9) Active confirmed Problem Moderate major depression, single episode (22664824) Major depressive disorder, single episode, moderate (F32.1) Active confirmed Problem Anxiety disorder (211872498) Anxiety disorder, unspecified (F41.9) Active confirmed Problem Chronic migraine without aura, non-intractable (129918730003409) Chronic migraine without aura, not intractable, without status migrainosus (G43.709) Active confirmed Problem Pseudofolliculitis barbae (851407498) 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) Active confirmed Problem Body mass index 40+ - severely obese (563216123) Body mass index (BMI) 40.0-44.9, adult (Z68.41) Active confirmed Problem Essential hypertension (31357328) Essential (primary) hypertension (I10) Active confirmed Problem Constipation (55791715) Constipation (K59.00) Active confirmed Problem Healed pyelonephritis (disorder) (513966356) History of pyelonephritis (Z87.448) Active confirmed Problem Recurrent urinary tract infection (313907155) Recurrent UTI (N39.0) Active confirmed Problem Dietary management surveillance (287069623) Dietary surveillance/cou nseling for obesity (V65.3) 2011 Active confirmed [id number] Problem Essential hypertension (50421235) Essential primary hypertension (I10) Active confirmed [id number] nomed Description:B enign essential hypertension Problem Headache (91685219) Headache (307.81) 2011 Problem resolved confirmed [id number] Encounters Encounter Location Date Provider Diagnosis [facility] [address] [place] [facility] [place] [address] 12/19/2024 FABRIZIO MEYER Plan Of Treatment Pending Test Test Name Order Date Renal Ultrasound MAYANK [id number] 05/11/2023 Aldosterone and Renin Activity 6 Urine Culture, Routine 11/26/2016 Cortisol - AM 05/13/2016 Hepatitis Panel, Acute w/Reflex 09/26/19 16 Urinalysis 11/26/2016 Ultrasound : Gallbladder* 09/26/2015 Bladder Scan 06/17/2023 Insurance Providers Payer Name Payer Address Payer Phone Subscriber Number Group Number Insured Name Patient Relationship to Insured Coverage Start Date Coverage End Date [place] [address] [place], [place] [id number] Dora Ruffin Self - patient is the insured [facility] [address] [place], [place] [id number] Dora Ruffin Self - patient is the insured 2 2 [facility] [address] [address] [place], [place] [id number] Dora Ruffin Self - patient is the insured Medical (General) History Medical History History ICD Code Hypertension Polycystic Ovar ibrahima Disease Migraine Headaches GYNECOLOGICAL HISTORY:Y1Obdautgh with have included PIH. Problem:Hypertensive disorde r, systemic arterial (disorder) , Status :: Active Problem:Morbid obesity (disorder) , Stat us :: Active Surgical History Surgery Date(Month/Year) Tonsillectomy/Adenoidectomy; Biopsy of b reast; benign breast bx Left carpal tunnel release
--- OUTSIDE RECORDS SUMMARY | 2025-06-29 03:02 | XMS_ITS | Clinical Summary ---
Author Organization [facility] Address [address] [facility] [address] [address] [facility] [address] Marcosn: Epic Prelude ADT SELENA LITTLEJOHN [address] Care Team Providers Care Community Development Specialist Name Role Phone Unavailable Primary Care Provider Unavailabl e Immunizations Immunization Administration Dates Next Due (M-M-R II/PRIORIX)(12 MO UP) MEASLES, MUMPS AND RUBELLA VIRUS VACCINE, 0.5 ML IM/SUBCUT 09/16/1995,07/14/1991 (TDVAX)(7 YRS UP) TETANUS AN D DIPHTHERIA TOXOIDS, ADSORBED (2 LF OF TETANUS TOXOID AND 2 LF OF DIPHTHERIA TOXOID), 0.5ML (PF), IM 10/13/1991 Dt Dtp Dtap Vaccine 09/16/1995,1990,1990 HIB, Unspecified Formulation 10/13/1991,02/24/19 91,1990 Hepatitis B Vaccine 05/02/1996,11/18/1995,1995 IPV/OPV 09/16/1995, 2,1990,1989 Social History Tobacco Use Types Packs/Day Years Used Date Smoking Tobacco: Never Assessed Comments Unknown Sex and Gender Information Value Date Recorded Sex Assigned at Not on file Legal Sex Female 4:31 AM PACS SPECIALIST Gender Identity Not on file Sexual Orientation Not on file Plan of Treatment Health Maintenance Due Date Last Done Comments DTAP/TDAP/TD VACCINES (4 - Tdap) 2009 09/16/1995, 10/13/1991, 1990, Additional history exists HPV/Cotest (21-29) 2011 HPV VACCINES (1 - 3-dose SCD M series) 2017 CERVICAL CANCER SCREENING 2020 HPV/Cotest (30-65) 2020 PAP SMEAR 2020 INFLUENZA VACCINE (#1) 2025 HEPATITIS B VACCINES Completed 05/02/1996, 11/18/1995, 09/16/1995
--- OUTSIDE RECORDS SUMMARY | 2025-06-29 03:02 | XMS_ITS | Encounter Summary ---
Author Organization [facility] Address [address] [place] [address] Care Team Providers Care Head Automatic Sawyer Name Role Phone Unavailable Primary Care Provider Unavailabl e Encounter Details Date Type Department Care Team (Latest Contact Info) Description 05/11/1998 Outpatient Historical [facility] Stephens Benson [address] [phone] Huang Benson MD [address] [place] [address] Unspecified viral infection, in conditions classified elsewhere and of unspecified site (Primary Dx) Social History Tobacco Use Types Packs/Day Years Used Date Smoking Tobacco: Never Assessed Comments Unknown Sex and Gender Information Value Date Recorded Sex Assigned at Not on file Legal Sex Female 4:31 AM NETTING WEAVER Gender Identity Not on file Sexual Orientation Not on file documented as of this encounter Plan of Treatment Not on file documented as of this encounter Visit Diagnoses Diagnosis Unspecified viral infection, in conditions classified elsewhere and of unspecified site- Primary documented in this encounter
--- OUTSIDE RECORDS SUMMARY | 2025-06-29 03:02 | XMS_ITS | Encounter Summary ---
Author Organization [facility] Address [address] [facility] [address] Attn: [place] [address] Care Team Providers Care Financial Institution President Name Role Phone Unavailable Primary Care Provider Unavailabl e Encounter Details Date Type Department Care Team (Latest Contact Info) Description [facility] [address] [facility] [address] [place] [phone] Social History Tobacco Use Types Packs/Day Years Used Date Smoking Tobacco: Never Assessed Comments Unknown Sex and Gender Information Value Date Recorded Sex Assigned at Not on file Legal Sex Female 4:31 AM COURSE INSTRUCTOR Gender Identity Not on file Sexual Orientation Not on file documented as of this encounter Plan of Treatment Not on file documented as of this encounter Visit Diagnoses Not on filedocumented in this encounter
--- OUTSIDE RECORDS SUMMARY | 2025-06-29 03:02 | XMS_ITS | Encounter Summary ---
Author Organization [facility] Address [address] [place] [address] Care Team Providers Care Pigskin Trimmer Name Role Phone Unavailable Primary Care Provider Unavailabl e Encounter Details Date Type Department Care Team (Latest Contact Info) Description 07/28/1997 Outpatient Historical [facility] [address] [place] [address] Vahid Richard MD NO ADDRESS ON FILE Chronic rhinitis (Primary Dx) Social History Tobacco Use Types Packs/Day Years Used Date Smoking Tobacco: Never Assessed Comments Unknown Sex and Gender Information Value Date Recorded Sex Assigned at Not on file Legal Sex Female 4:31 AM FOOT CASTER Gender Identity Not on file Sexual Orientation Not on file documented as of this encounter Plan of Treatment Not on file documented as of this encounter Visit Diagnoses Diagnosis Chronic rhinitis- Primary documented in this encounter
--- OUTSIDE RECORDS SUMMARY | 2025-06-29 03:02 | XMS_ITS | Clinical Summary ---
Author Organization [facility] Facility Address [address] [place] [id number] Care Team Providers Care Gang Miner Name Role Phone Ilda Lopez MD Primary Care Provider [phone] Social History Tobacco Use Types Packs/Day Years Used Date Smoking Tobacco: Never Assessed Comments Unknown Sex and Gender Information Value Date Recorded Sex Assigned at Not on file Legal Sex Female 11:21 AM EST Gender Identity Not on file Sexual Orientation Not on file Plan of Treatment Health Maintenance Due Date Last Done Comments Hepatitis B Vaccine (1 of 3 - 19+ 3-dose series) 2009 Influenza Vaccine (#1) 2025 Pneumococcal Vaccine: Peds ( 0 to 5 Years) and At-Risk Patients (6 to 49 Years) Aged Out No longer eligible b ased on patient's age to complete this topic Insurance Medicaid [place] ([facility]) Care Teams Gang Miner Relationship Specialty Start Date End Date Ilda Lopez MD [address] [place] [id number] PCP - General Family Medicine 06/25/21
--- OUTSIDE RECORDS SUMMARY | 2025-06-29 03:02 | XMS_ITS | Encounter Summary ---
Author Organization [facility] Address [address] [place] [address] Care Team Providers Care Account Executive Metalworking Name Role Phone Unavailable Primary Care Provider Unavailabl e Encounter Details Date Type Department Care Team (Latest Contact Info) Description 05/08/1998 Outpatient Historical [facility] [place] [address] [phone] Huang Benson MD [address] [place] [phone] Acute sinusitis, unspecified (Primary Dx) Social History Tobacco Use Types Packs/Day Years Used Date Smoking Tobacco: Never Assessed Comments Unknown Sex and Gender Information Value Date Recorded Sex Assigned at Not on file 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
--- OUTSIDE RECORDS SUMMARY | 2025-06-29 03:02 | XMS_ITS | Encounter Summary ---
Author Organization [facility] Address [address] [place] [address] Care Team Providers Care Community Mental Health Social Worker Name Role Phone Unavailable Primary Care Provider Unavailabl e Encounter Details Date Type Department Care Team (Latest Contact Info) Description 05/08/1998 Outpatient Historical [facility] [place] [address] [phone] Huang Benson MD [address] [place] [phone] Acute bronchitis (Primary Dx); Acute sinusitis, unspecified Social History Tobacco Use Types Packs/Day Years Used Date Smoking Tobacco: Never Assessed Comments Unknown Sex and Gender Information Value Date Recorded Sex Assigned at Not on file 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
--- OUTSIDE RECORDS SUMMARY | 2025-06-29 03:02 | XMS_ITS | Encounter Summary ---
Author Organization [facility] Address [address] [place] [address] Care Team Providers Care Envelope Machine Adjuster Name Role Phone Unavailable Primary Care Provider Unavailabl e Encounter Details Date Type Department Care Team (Latest Contact Info) Description 09/12/[address] [facility] 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
--- OUTSIDE RECORDS SUMMARY | 2025-06-29 03:02 | XMS_ITS | Patient Health Record ---
Author Organization [facility] Address [address] [place] [address] Care Team Providers Care Breaker Machine Tender Name Role Phone Sherita Payan APRN Primary Care Provider Unav mckenzie LudmilakarolSkye Unavailable [phone] Ant Lovett Unavailable Unavailable Allergies Allergen (clinical drug ingredient) Drug/Non Drug Allergy documented on EMR Reaction Allergy Type Onset Date Status Vaccine product containing Bordetella pertussis antigen (medicinal product) Pertussis (uncoded) Unknown Allergy A ctive dextromethorphan Dextromethorphan , Drug Allergy Active Penicillin Unknown Drug Allergy Active Substance with penicillin structure and antibacterial mechanism of action (substance) Penicillins Unknown Drug Allergy Active Vaccine product containing Bordetella pertussis antigen (medicinal product) pertussis vaccines Unknown Drug Allergy Ac tive Reason For Referral No Information Medications Medication SIG (Take, Route, Frequency, Duration) Notes Start Date End Date Status Doxycycline Hyclate 100 MG Tablet Delayed Release 1 tablet Orally every 12 hrs; Duration: 10 days 05/15/2017 Active Metoprolol Tartrate 25 MG Tablet 1 tablet with food Orally Twice a day; Duration: 30 days Active ZyrTEC Allergy 10 MG Tablet 1 tablet Orally Once a day Active Implanon 68 mg IMPLANT (EA) SUBCUTANEOUS; Duration: 0 *please review for potential update for e-prescription and drug interaction check* Implanon 68mg Implant 03/03/2012 Active Tessalon Perles 100 MG Capsule 1 capsule as needed Orally Three times a day; Duration: 15 days 05/07/2017 Not-Taking Flonase Allergy Relief 50 MCG/ACT Suspension 1 spray in each nostril Nasally BID; Duration: 30 day(s) 04/27/2017 Not-Taking Mobic 15 MG Tablet 1 tablet Orally Once a day; Duration: 30 day(s) 04/06/2017 Active Topamax 50 MG Tablet Take 1 tablet(s) by mouth bid Oral; Duration: 30 Topamax (Topiramate) 50mg Tablet Take 1 tablet(s) by mouth bid #60 (Sixty) tablet(s) 04/19/2012 Active Biotin Maximum Strength 45687 MCG Tablet 1 tablet Orally Once a day Active Effexor XR 150 MG Capsule Extended Release 24 Hour 1 capsule with food Orally Once a day Active Cheratussin AC 100-10 MG/5ML Syrup 1-2 tsp Orally every 4 hours prn; Duration: 14 days 04/27/2017 Not-Taking Lasix 20 MG Tablet 1 tablet Orally BID prn; Duration: 30 day(s) 04/06/2017 Active Labetalol HCl 100 MG Tablet 1/2 tab(s) po qd Oral; Duration: 30 Labetalol HCl 100mg Tablet 1/2 tab(s) po qd #30 (Thirty) tablet(s) 03/03/2012 Active Botox 100 UNIT Solution Reconstituted Injection Active meloxicam 15 MG Oral Tablet meloxicam 15 MG Oral Tablet 09/21/2014 Active Social History Social History Additional Details Category Social Info Options Details zzMigrated Social History Migrated Social History Drugs/Alcohol:(Alcohol Screen (Audit-C)): Did you have a drink containing alcohol in the past year?: No, Points: 0, Interpretation: Negative ;Tobacco Use:(Tobacco Use/Smoking): Are you a: nonsmoker ; Section Notes: Lives with daughter Denies any tobacco use. Lives with daughter Denies any tobacco use. Lives with daughter Denies any tobacco use. Lives with daughter Denies any tobacco use. Lives with daughter Denies any tobacco use. Lives with daughter Denies any tobacco use. Lives with daughter, soon to be Denies any tobacco use. Lives with daughter, soon to be Denies any tobacco use. Lives with daughter, soon to be Denies any tobacco use. Lives with daughter Denies any tobacco use. Lives with daughter Denies any tobacco use. Problems Problem Type SNOMED Code ICD Code Onset Dates Problem Status W/U Status Risk Notes Problem Polycystic ovary syndrome (disorder) (321291801) Polycystic ovarian syndrome (E28.2) Active confirmed Problem Obesity (983644547) Obesity, unspecified (E66.9) Active confirmed Problem Moderate major depression, single episode (73863940) Major depressive disorder, single episode, moderate (F32.1) Active confirmed Problem Anxiety disorder (636044794) Anxiety disorder, unspecified (F41.9) Active confirmed Problem Chronic migraine without aura, non-intractable (589445500458133) Chronic migraine without aura, not intractable, without status migrainosus (G43.709) Active confirmed Problem Pseudofolliculitis barbae (084362384) 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) Active confirmed Problem Body mass index 40+ - severely obese (602253630) Body mass index (BMI) 40.0-44.9, adult (Z68.41) Active confirmed Problem Essential hypertension (90333876) Essential (primary) hypertension (I10) Active confirmed Problem Recurrent urinary tract infection (592038484) Recurrent UTI (N39.0) Active confirmed Problem Dietary management surveillance (259435239) Dietary surveillance/cou nseling for obesity (V65.3) 2011 Active confirmed [id number]- Problem Essential hypertension (54094457) Essential primary hypertension (I10) Active confirmed [id number] nomed Description:B enign essential hypertension Problem Headache (06225758) Headache (307.81) 2011 Problem resolved confirmed [id number]- Plan Of Treatment Pending Test Test Name Order Date Aldosterone and Renin Activity 6 Urine Culture, Routine 11/26/2016 Cortisol - AM 05/13/2016 Urinalysis 11/26/2016 Insurance Providers Payer Name Payer Address Payer Phone Subscriber Number Group Number Insured Name Patient Relationship to Insured Coverage Start Date Coverage End Date [employer] [address] [place] [phone] [id number] Dora Ruffin Self - patient is the insured On License Of [facility] [address] [place] [address] [id number] Dora Ruffin Self - patient is the insured 2 2 Medical (General) History Surgical History Surgery Date(Month/Year) D&C 08/2012 breast biopsy 2009
--- NOTE | 2025-06-29 04:02 | W.ED.HA ---
HPI - Headache General: Chief Complaint: Headache Stated Complaint: Migraine Time Seen by Provider: 06/29/25 02:52 History of Present Illness: Patient is a 35-year-old female with a history of migraines who presents to the ED with 3 days of a migraine, describes it as diffuse and sharp in nature, no associated vision loss, jaw claudication, fevers, neck pain. Has a extensive history with migraines, has been on a new preventative and fusion for the last year that has mildly helped, Vyetpy. She states that no rescue medications have been effective except for a migraine cocktail in the ED. Related Data Home Medications ?Medication ?Instructions ?Recorded ?Confirmed docusate sodium 100 mg capsule 100 mg PO DAILY 06/25/23 06/13/25 (Dulcolax Stool Softener (docusate)) Previous Rx's ?Medication ?Instructions ?Recorded eptinezumab-jjmr 100 mg/mL 100 mg IV ONCE #1 mL 01/22/24 intravenous solution (Vyepti) scopolamine base 1 mg over 3 days 1 patch transdermal Q3D PRN nausea 07/05/24 transdermal patch and vomiting #4 ea venlafaxine 37.5 mg See Rx Instructions .Route 01/13/25 capsule,extended release 24 hr .COMPLEX #90 caps nitrofurantoin 100 mg PO BID 5 days #10 caps 01/30/25 monohydrate/macrocrystals 100 mg capsule (Macrobid) alprazolam 1 mg tablet 1 mg PO BID PRN stress #60 tabs 02/20/25 clonidine 0.1 mg/24 hr weekly See Rx Instructions .Route 02/22/25 transdermal patch .COMPLEX #4 patches cyanocobalamin (vitamin B-12) 1,000 mcg IM .qmonth vit b12 def 03/06/25 1,000 mcg/mL injection kit #4 ea famotidine 40 mg tablet 40 mg PO .qhs #90 tabs 04/11/25 sulfamethoxazole 800 1 tab PO BID UTI's #10 tabs 05/10/25 mg-trimethoprim 160 mg tablet (Bactrim DS) tirzepatide 10 mg/0.5 mL 20 mg SUBCUT .qweek #2 mL 05/10/25 subcutaneous pen injector (Aidenunsuhail) doxycycline hyclate 100 mg tablet 100 mg PO BID 7 days #14 tabs 06/23/25 metronidazole 500 mg tablet 500 mg PO BID 7 days #14 tabs 06/23/25 Allergies Allergy/AdvReac Type Severity Reaction Status Date / Time Pertussis Vaccines Allergy Severe SOB Verified 06/29/25 02:58 Penicillins Allergy Mild rash--can Verified 06/29/25 02:58 take Keflex vancomycin Allergy Mild itching Verified 06/29/25 02:58 Review of Systems General: Reports: 10 or more systems reviewed and unremarkable except in HPI and below Neuro: Reports: headache(s) PFSH ED PFSH: Medical History (Updated 06/29/25 @ 04:59 by Thai Trivedi DO) Recurrent urinary tract infection GERD (gastroesophageal reflux disease) PCOS (polycystic ovarian syndrome) (~2018) -Diagnosed with PCO S based on irregular cycles, morbid obesity and excessive hair growth. Anxiety with depression Symptoms since a teenager and is managed on medication by her primary care provider. She does not have a therapist or a psychiatrist Migraine without aura Since her teenage years and is managed with medication and Botox by Dr. Dunn Sinus tachycardia Diagnosed in 2019 and is managed with propranolol and follows with cardiology---Dr. Contreras/Adrián and PMD Surgical History History of resection of stomach 09/06/21 in [place], [place]-- performed due to stricture and erosion. She reports her stomach is approximately 1.5in in size. History of dilation and curettage 08/19/2012---done by Dr. Mahan at [facility] for heavy bleeding. 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 Garcia/Kalli History of tonsillectomy and adenoidectomy As a child S/P laparoscopic sleeve gastrectomy (~11/2018) Performed by Dr. Rosado at [facility]. History of bilateral carpal tunnel release Rt:2016 Lt:2018 History of placement of ear tubes X4 --between the ages of 3 and 10 H/O release of tendon (~09/2017) left wrist for de Quervain's disease Family History Grandmother Hypertension Paternal Diabetes Paternal Heart disease Paternal Stroke Paternal Mother Diabetes Breast cancer dx at age 44 Heart disease L ventricular hypertrophy Thyroid disease Grandfather Diabetes Maternal Colon cancer Paternal unknown age of dx Sister Hypertension Father Heart disease Denies family history of Ovarian cancer Hypercholesteremia Uterine cancer Social History Smoking and tobacco/nicotine status: never used tobacco/nicotine Physical Exam Narrative: EXAM NARRATIVE: Well-appearing, afebrile, vital stable on arrival. Appears photophobic, GCS 15, alert and oriented x 4, answers questions and follows commands appropriately, spontaneously moving all 4 extremities, pupils equal round reactive, no nystagmus. No neck stiffness. Breathing comfortably on room air, normal sinus rhythm, no leg swelling. Course Vital Signs: Vital signs: Vital Signs Temperature 97.5 F L 06/29/25 02:52 Pulse Rate 77 06/29/25 05:08 Respiratory Rate 18 06/29/25 02:52 Blood Pressure 123/65 06/29/25 05:08 Pulse Oximetry 96 06/29/25 05:08 Oxygen Delivery Me thod Room Air 06/29/25 04:08 MDM - Headache Medical Decision Making -ddx: Migraine, tension headache, cluster headache, considered but less likely secondary causes of headache, SAH, dural venous sinus thrombosis, meningitis, GCA - Patient with 3 days of a headache, has a well-established history of this and feels like her prior, states she only gets relief from migraine cocktails in the ED, no red flag signs or symptoms for worrisome causes of the headache at this time, will treat with a migraine cocktail and if does not improve or basic lab abnormalities we will further discuss imaging and brought her laboratory workup. -Patient with complete relief of her migraine after the above cocktail, basic labs reassuring for no acute pathology, able to ambulate, p.o. without issue and discharged in stable condition with supportive care recommendations for future migraines and prevention, encouraged to follow-up with neurology soon for further evaluation, discharged in stable condition with strict return precautions given. Lab Data 06/29/25 04:15 06/29/25 04:15 Laboratory Results WBC 7.52 10^3/uL (3.29-11.43) 06/29/25 04:15 RBC 4.20 10^6/uL (3.85-5.65) 06/29/25 04:15 Hgb 12.60 g/dL (11.27-16.99) 06/29/25 04:15 Hct 37.0 % (36-47) 06/29/25 04:15 MCV 88.1 fl (85-98) 06/29/25 04:15 MCH 30.0 pg (27-33) 06/29/25 04:15 MCHC 34.1 g/dL (30-55) 06/29/25 04:15 RDW 12.5 % (12.1-15.1) 06/29/25 04:15 Plt Count 222 10^3/cmm (157-399) 06/29/25 04:15 MPV 11.9 fL (7.4-10.4) H 06/29/25 04:15 Neut % (Auto) 62.7 % 06/29/25 04:15 Lymph % (Auto) 27.1 % 06/29/25 04:15 Sierra % (Auto) 9.0 % 06/29/25 04:15 Eos % (Auto) 0.7 % 06/29/25 04:15 Baso % (Auto) 0.4 % 06/29/25 04:15 Neut # (Auto) 4.71 10^3/uL (1.8-7.7) 06/29/25 04:15 Lymph # (Auto) 2.0 10^3/uL (0.8-4.8) 06/29/25 04:15 Sierra # (Auto) 0.7 10^3/uL (0.2-0.9) 06/29/25 04:15 Eos # (Auto) 0.1 10^3/uL (0.0-0.8) 06/29/25 04:15 Baso # (Auto) 0.0 10^3/uL (0.0-0.1) 06/29/25 04:15 Nucleated RBC % (auto) 0 % 06/29/25 04:15 Nucleated RBCs # 0.0 /100WBC 06/29/25 04:15 Sodium 139 mmol/L (136-145) 06/29/25 04:15 Potassium 3.2 mmol/L (3.5-5.1) L 06/29/25 04:15 Chloride 106 mmol/L (98-107) 06/29/25 04:15 Carbon Dioxide 25 mmol/L (22-29) 06/29/25 04:15 Anion Gap 11.2 (5-19) 06/29/25 04:15 BUN 8 mg/dL (6-20) 06/29/25 04:15 Creatinine 0.8 mg/dL (0.5-0.9) 06/29/25 04:15 GFR Calculation 81.6 mL/min (90-130) L 06/29/25 04:15 Glucose 81 mg/dL (65-115) 06/29/25 04:15 Calculated Osmolality 285 mOsm/kg (285-295) 06/29/25 04:15 Calcium 8.6 mg/dL (8.5-10.5) 06/29/25 04:15 Total Bilirubin 0.6 mg/dL (0.15-1.2) 06/29/25 04:15 AST 11 U/L (0-32) 06/29/25 04:15 ALT 7 U/L (0-33) 06/29/25 04:15 Alkaline Phosphatase 103 U/L (35-105) 06/29/25 04:15 Total Protein 6.8 g/dL (6.6-8.7) 06/29/25 04:15 Albumin 4.0 g/dL (3.5-5.2) 06/29/25 04:15 Globulin 2.8 g/dL (1.3-4.6) 06/29/25 04:15 No radiology studies performed this visit Discharge Plan Discharge Patient Disposition: Home Clinical Impression: Migraine Condition: Stable Prescriptions: No Action docusate sodium [Dulcolax Stool Softener (dss)] 100 mg capsule 100 mg PO DAILY Mounjaro 10 mg/0.5 mL pen injector 20 mg SUBCUT .qweek Qty: 2 0RF sulfamethoxazole-trimethoprim [Bactrim DS] 800-160 mg tablet 1 tab PO BID Qty: 10 5RF Vyepti 100 mg/mL solution 100 mg IV ONCE Qty: 1 5RF Rx Instructions: every 3 months IV scopolamine base 1 mg over 3 days patch 3 day 1 patch transdermal Q3D PRN (Reason: nausea and vomiting) Qty: 4 0RF venlafaxine 37.5 mg capsule,extended release 24hr See Rx Instructions .ROUTE .COMPLEX Qty: 90 3RF Dose Instruction: take 1 capsule BY MOUTH EVERY DAY Rx Instructions: take 1 capsule BY MOUTH EVERY DAY nitrofurantoin monohyd/m-cryst [Macrobid] 100 mg capsule 100 mg PO BID 5 Days Qty: 10 3RF Rx Instructions: must administer with a meal/food alprazolam 1 mg tablet 1 mg PO BID PRN (Reason: stress) Qty: 60 2RF clonidine 0.1 mg/24 hr patch weekly See Rx Instructions .ROUTE .COMPLEX Qty: 4 3RF Dose Instruction: APPLY ONE PATCH transdermally every week Rx Instructions: APPLY ONE PATCH transdermally every week cyanocobalamin (vitamin B-12) 1,000 mcg/mL kit 1,000 mcg IM .qmonth Qty: 4 3RF famotidine 40 mg tablet 40 mg PO .qhs Qty: 90 3RF doxycycline hyclate 100 mg tablet 100 mg PO BID 7 Days Qty: 14 0RF metronidazole 500 mg tablet 500 mg PO BID 7 Days Qty: 14 0RF Discharge Orders: Discharge ED (Routine); Ordered 06/29/25 Ordered By: Thai Trivedi Referrals: Alex Hurd DO [Primary Care Provider, Family Practice] Patient Instructions: Opioid Safety, Pain Management, Patient Portal & Jabari Instructions Activity Restrictions/Additional Instructions: You were seen for your headache, you were given a cocktail of medications and improved and with reassuring labs you were able to be discharged home. Ensure you stay hydrated and follow-up with your neurologist for further medication management if the headaches become worse. Return to the ED with severe worsening of the headache, vomiting, confusion, fevers, neck stiffness, any other emergent concerns. Print Language: Frisian Coding Level of Care Code ED Swing Frame Grinder Operator for Marsha Velázquez
[2025-06-29] MEDS: diphenhydrAMINE 50 mg/mL SDV 1mL 25 MG IVP (04:06)
[2025-06-29 04:08] VITALS: BP 133/97; PULSE 79; O2SAT 100
[2025-06-29 04:25] LABS: Hematocrit 37.0 % (36-47); Hemoglobin 12.60 g/dL (11.27-16.99); Mean Corpuscular HGB Conc 34.1 g/dL (30-55); Mean Corpuscular Hemoglobin 30.0 pg (27-33); Mean Corpuscular Volume 88.1 fl (85-98); Nucleated Red Blood Cells % 0 %; Platelet Count 222 10^3/cmm (157-399); Red Blood Count 4.20 10^6/uL (3.85-5.65); White Blood Count 7.52 10^3/uL (3.29-11.43)
[2025-06-29 04:42] LABS: Alanine Aminotransferase 7 U/L (0-33); Albumin Level 4.0 g/dL (3.5-5.2); Alkaline Phosphatase 103 U/L (35-105); Aspartate Amino Transferase 11 U/L (0-32); Blood Urea Nitrogen 8 mg/dL (6-20); Calcium 8.6 mg/dL (8.5-10.5); Carbon Dioxide 25 mmol/L (22-29); Chloride 106 mmol/L (98-107); Globulin 2.8 g/dL (1.3-4.6); Glucose 81 mg/dL (65-115); Osmolality Calculated 285 mOsm/kg (285-295); Sodium 139 mmol/L (136-145); Total Protein 6.8 g/dL (6.6-8.7)
[2025-06-29 04:43] LABS: Anion Gap 11.2 (5-19); Potassium 3.2 mmol/L (3.5-5.1)
[2025-06-29 05:08] VITALS: BP 123/65; PULSE 77; O2SAT 96
== END 2025-06-29 05:14 | disposition home or self-care (01) ==
PROVIDERS: Emergency Provider Student in an Organized Health Care Education/Training Program; PCP Family Medicine
DX: G43.909 Migraine, unspecified, not intractable, without status migrainosus (principal)
CPT/HCPCS: 36415; 80053; 85025; 96374; 96375; 99284; J0780; J1200; J1885; J7030

== ENCOUNTER 2025-07-03 09:23 | Day surgery (SDC) | payer BC, MEDICAID, SELFPAY ==
[2025-07-03] VITALS (9 sets, daily range): BP systolic 97–156; BP diastolic 75–110; PULSE 63–120; RESP 16–18; TEMP 36.1–36.7; O2SAT 96–100; BMI 29.1
--- NOTE | 2025-07-03 09:51 | P.ANESASSM_ITS ---
Pre-Anesthetic Assessment Height/Weight: Height 1.65 m Preop Diagnosis: Lumbar stenosis with neurogenic claudication Operation Date: 07/03/25 11:05 Proposed Procedures p Lumbar Spine Decompression(Not Applicable) - Hugo Schneider, DO Was Beta Kit taken within 24 hours: N/A Was Clonidine taken within 24 hours: Yes Social No alcohol and No tobacco Exam alert, oriented x 3, clear to auscultation bilaterally and regular rate & rhythm Airway Submandibular: within normal limits Cervical ROM: within normal limits Mallampati: Class II Dentition: full History/ROS No significant history except as noted and No significant complaints Pulmonary None reported CV/HEM Hypertension None reported Hepatic None reported GI None reported Metabolic None reported Musc/skel Lower Back Pain Neuropsych Anxiety Migraine headaches Anesthetic Plan ASA status: 2 Anesthesia: General Risk of > 500 ml blood loss (7ml/kg in children): No Medications/Allergies Home Medications ?Medication ?Instructions ?Recorded ?Confirmed ?Last Taken ?Type docusate sodium 100 mg capsule 100 mg PO DAILY 3 07/03/25 07/02/25 History (Dulcolax Stool Softener (docusate)) eptinezumab-jjmr 100 mg/mL 100 mg IV ONCE #1 mL 07/03/25 06/28/25 Rx intravenous solution (Vyepti) nitrofurantoin 100 mg PO BID 5 days #10 cap s 01/30/25 07/03/25 12/28/24 Rx monohydrate/macrocrystals 100 mg capsule (Macrobid) alprazolam 1 mg tablet 1 mg PO BID PRN stress #60 t abs 02/20/25 07/03/25 07/02/25 Rx clonidine 0.1 mg/24 hr weekly See Rx Instructions .Rou te 02/22/25 06/13/25 06/25/25 Rx transdermal patch .COMPLEX #4 patches famotidine 40 mg tablet 40 mg PO .qhs #90 tabs 04/1107/03/25 07/02/25 Rx tirzepatide 10 mg/0.5 mL 20 mg SUBCUT .qweek #2 mL 07/03/25 06/25/25 Rx subcutaneous pen injector (Delia) venlafaxine 37.5 mg 37.5 mg PO DAILY 07/03/2507/02/25 History capsule,extended release 24 hr Allergies Allergy/AdvReac Type Severity Reaction Status Date / Time Pertussis Vaccines Allergy Severe SOB Verified 07/03/25 09:39 Penicillins Allergy Mild rash--can Verified 07/03/25 09:39 take Keflex vancomycin Allergy Mild itching Verified 07/03/25 09:39 [facility] Anesthesia Medical History (Updated 06/29/25 @ 04:59 by Thai Trivedi DO) Recurrent urinary tract infection GERD (gastroesophageal reflux disease) PCOS (polycystic ovarian syndrome) (~2018) -Diagnosed with PCO S based on irregular cycles, morbid obesity and excessive hair growth. Anxiety with depression Symptoms since a teenager and is managed on medication by her primary care provider. She does not have a therapist or a psychiatrist Migraine without aura Since her teenage years and is managed with medication and Botox by Dr. Dunn Sinus tachycardia Diagnosed in 2019 and is managed with propranolol and follows with cardiology---Dr. Contreras/Adrián and PMD Surgical History History of resection of stomach 09/06/21 in [place], [place]-- performed due to stricture and erosion. She reports her stomach is approximately 1.5in in size. History of dilation and curettage 08/19/2012---done by Dr. Mahan at [facility] [place] [facility] [place]. 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 Garcia/Kalli History of tonsillectomy and adenoidectomy As a child S/P laparoscopic sleeve gastrectomy (~11/2018) Performed by Dr. Rosado at [facility] [place]. History of bilateral carpal tunnel release Rt:2016 Lt:2018 History of placement of ear tubes X4 --between the ages of 3 and 10 H/O release of tendon (~09/2017) left wrist for de Quervain's disease Family History Grandmother Hypertension Paternal Diabetes Paternal Heart disease Paternal Stroke Paternal Mother Diabetes Breast cancer dx at age 44 Heart disease L ventricular hypertrophy Thyroid disease Grandfather Diabetes Maternal Colon cancer Paternal unknown age of dx Sister Hypertension Father Heart disease Denies family history of Ovarian cancer Hypercholesteremia Uterine cancer Social History Smoking and tobacco/nicotine status: never used tobacco/nicotine Data Anesthesia Cardiac Studies: Echocardiogram Ultrasound 10/07/19 Cardiac Event Monitor 07/20/20
[2025-07-03 09:56] LABS: OR HCG Qualitative Urine Negative (Negative)
--- NOTE | 2025-07-03 10:25 | W.PM.OPSUD ---
Surgery/Procedure H&P Update DATE OF PROCEDURE: July 03, 2025 DATE H&P PERFORMED: 06/13/25 H&P UPDATE INFORMATION: I have reviewed H&P completed within last 30 days, I have examined patient prior to procedure and No changes to prior documentation PREOP DIAGNOSIS: Lumbar stenosis with neurogenic claudication PLANNED PROCEDURE: Operation Date: 07/03/25 11:05 Proposed Procedures p Lumbar Spine Decompression(Not Applicable) - Hugo Schneider DO
[2025-07-03] MEDS: lidocaine-epi 1% 20 mL INJ INJECTION (11:00)
--- NOTE | 2025-07-03 12:02 | P.OP_ITS ---
Operative Report Date of procedure: July 03, 2025 Pre-op diagnosis: Lumbar stenosis with neurogenic claudication Post-op diagnosis: same Procedure done: L4/5 laminectomy with partial facetectomy Surgeon: Hugo Schneider DO Estimated blood loss (mL): 5 Procedure: L4/5 laminectomy partial facetectomy Patient is brought to the operative suite. After undergoing anesthesia they are placed in the prone position. All areas of impingement are well padded. Patient is then prepped and draped in the normal sterile fashion. A skin incision is made over the L4/5 level. This is confirmed under c-arm guidance. A series of dilators are passed and the tubular retractor is docked on the L4 lamina. A bovie is used to clear the soft tissue off the lamina and the L 4/5 facet joint. A high speed aman is then used to perform the laminectomy and take down the medial aspect of the L 4/5 facet joint. A kerrison rongeure was then used to take down the remaining lamina and smooth the edge of the laminectomy up to the point where the ligamentum flavum attaches. Attention was then brought to the medial aspect of the facet joint. The remaining medial aspect of the superior and inferior aspect of the facet joint were taken down with the kerrison from the pedicle of L4 to L 5. The facet milton int had significant hypertrophy. Attention was then brought to the Ligamentum Flavum. The ligament was taken down from the lamina of L4 to L5 and out medially to the remaining facet joint. The ligament was thick. The dura was then exposed. The dura was in good repair. The L4 nerve was then traced with a curette out the L4/5 foramen and found to be adequately decompressed. The L5 nerve was traced with a curette around the L5 pedicle. The lateral recess was opened with a kerrison helping to further decompress the L5 nerve. Wound is then irrigated copiously with saline and surgiflo is used to stop any bleeding. The tubular retractor is removed and the wound is closed with vicryl and monocryl suture. Steri strips were applied. A sterile dressing is then placed. Patient was then placed in the supine position and transferred to the PACU in stable condition.
[2025-07-03] MEDS: HYDROcodone-acetaminophen 5-325 mg Tablet 1 TAB PO (12:45)
--- NOTE | 2025-07-03 12:55 | ANE.PACU2 ---
Inpatient post-anesthesia follow up: Airway intact: Yes Vital signs: Temperature 97.0 F Pulse Rate 68 Respiratory Rate 18 Blood Pressure 121/85 Pulse Oximetry 100 Oxygen Delivery Me thod Room Air Oxygen Flow Rate 6 Fraction of Inspir ed Oxygen Hydration adequate: Yes Nausea and vomiting: No Pain level: 1 Mental status: Baseline
--- NOTE | 2025-07-03 14:02 | XR_ITS ---
WS: [id number] INTRAOPERATIVE TECHNIQUE: 1 Spot fluoroscopic images for intraoperative purposes. FLUOROSCOPY TIME: 1 seconds CLINICAL INFORMATION: or pic, decompression FINDINGS: Localization marker projects over the RIGHT L4-5 interspace dorsally. XR/XR lumbar spine 1V [id number] IMPRESSION: Images obtained for intraoperative purposes.
== END 2025-07-03 12:58 | disposition home or self-care (01) ==
PROVIDERS: Anesthesiology; PCP Family Medicine; Visit Provider Orthopaedic Surgery
PROC: (CPT 63005; principal; 2025-07-03 10:55)
DX: M48.062 Spinal stenosis, lumbar region with neurogenic claudication (principal); I10 Essential (primary) hypertension; K21.9 Gastro-esophageal reflux disease without esophagitis; F41.8 Other specified anxiety disorders; R00.0 Tachycardia, unspecified; E28.2 Polycystic ovarian syndrome
CPT/HCPCS: 63047; 72020; 76000; 81025; A4649; J1100; J1885; J2250; J2405; J2704; J3010; J3490; J7030; J9999

== ENCOUNTER → 2025-07-27 09:44 | Outpatient (BNVA) | payer BC, MEDICAID, SELFPAY | PROVIDERS: PCP Family Medicine; Visit Provider Student in an Organized Health Care Education/Training Program | DX: K80.50 Calculus of bile duct without cholangitis or cholecystitis without obstruction (principal) | CPT/HCPCS: 36415; 80076 ==

== ENCOUNTER 2025-08-02 10:51 | Outpatient (CLI) | payer BC, MEDICAID, SELFPAY ==
[2025-08-02 11:34] LABS: Anion Gap 9.8 (5-19); Blood Urea Nitrogen 8 mg/dL (6-20); Calcium 9.2 mg/dL (8.5-10.5); Carbon Dioxide 31 mmol/L (22-29); Chloride 99 mmol/L (98-107); Glucose 145 mg/dL (65-115); Osmolality Calculated 283 mOsm/kg (285-295); Potassium 3.8 mmol/L (3.5-5.1); Sodium 136 mmol/L (136-145)
== END 2025-08-02 10:52 | disposition home or self-care (01) ==
LOC: LAB 10:52
PROVIDERS: PCP Family Medicine; Visit Provider Family Medicine
DX: Z01.818 Encounter for other preprocedural examination (principal); E87.6 Hypokalemia
CPT/HCPCS: 36415; 80048